=== PATIENT | female | born 1990 | race Caucasian/White ===

== ENCOUNTER 2018-11-10 06:41 | Emergency (ER) | payer MEDICAID, OTHER ==
--- NOTE | 2018-11-10 07:13 | XRay Report ---
PROCEDURE: XR CHEST 1V AP TECHNIQUE: A single view of the chest was submitted. HISTORY: Chest Pain COMPARISONS: None FINDINGS: The lungs are clear. Pleural fluid is not seen. The heart size is normal. The skeletal structures are well-maintained. IMPRESSION: No acute cardiopulmonary process.. This document is electronically signed by Calin Sheffield MD., November 10 2018 07:11:17 AM ET
--- NOTE | 2018-11-10 08:32 | Emergency Department Report ---
Minor Respiratory - HPI Chief Complaint: Upper Respiratory Infection Stated Complaint: COUGHING BLOOD/CHERI/SCRATCHY THROAT/NOSE BLEED Time Seen by Provider: 11/10/18 08:13 Duration: 3 Days Pain Location: Chest Severity: moderate Minor Respiratory: Yes Rhinorrhea, Yes Able to Tolerate Fluids, Yes Cough (occasionally the patient is noticed some bloody sputum), Yes Sick Contacts (patient's daughter has been ill approximately one month ago), No Sore Throat, No Ear Pain, No Hemoptysis, No Chest Pain, No Shortness of Breath, No Fever Other History: Besides the patient's cough patient also has had off and on nosebleeds. She states she has some pain in her chest when coughing. She is mild body aches and nasal congestion. ED Review of Systems ROS: Stated complaint: COUGHING BLOOD/CHERI/SCRATCHY THROAT/NOSE BLEED Other details as noted in HPI Comment: All other systems reviewed and negative ED Past Medical Hx - Past Medical History Previous Medical History?: No - Surgical History Past Surgical History?: No - Social History Smoking Status: Never Smoker Substance Use Type: None - Medications Home Medications: Home Medications Medication Instructions Recorded Confirmed Last Taken Type ALBUTEROL Inhaler (OR & NICU) 2 puff IH QID PRN #1 inhalation 11/10/18 Unknown Rx [ProAir HFA Inhaler] Fluticasone [Flonase] 1 spray NS QDAY #1 bottle 11/10/18 Unknown Rx HYDROcodone/APAP 5-325 [[place] 1 each PO Q4HR PRN #12 tablet 11/10/18 Unknown Rx 5/325] predniSONE [Deltasone] 20 mg PO QDAY #5 tab 11/10/18 Unknown Rx Minor Respiratory Exam - Exam General: Vital signs noted. No distress. Alert and acting appropriately. HEENT: Yes Moist Mucous Membranes, No Pharyngeal Erythema, No Pharyngeal Exudates, No Rhinorrhea, No Conjuctival Injection, No Frontal Tenderness, No Maxillary Tenderness Ear: Neither TM Bulge, Neither TM Erythema, Neither EAC Pain, Neither EAC Discharge Neck: Yes Supple, No Adenopathy Lungs: Yes Good Air Exchange, Yes Cough, No Wheezes, No Ronchi, No Stridor, No Labored Respirations, No Retractions, No Use of Accessory Muscles, No Other Abnormal Lung Sounds Heart: Yes Regular, No Murmur Abdomen: Yes Normal Bowel Sounds, No Tenderness, No Peritoneal Signs Skin: No Rash, No Edema Neurologic: Alert and oriented, no deficits. Musculoskeletal: Unremarkable. ED Medical Decision Making - Radiology Data Chest x-ray is within normal limits - Medical Decision Making Patient be treated for acute bronchitis. Patient discharged home. Critical care attestation.: If time is entered above; I have spent that time in minutes in the direct care of this critically ill patient, excluding procedure time. ED Disposition Clinical Impression: Acute bronchitis Qualifiers: Bronchitis organism: unspecified organism Qualified Code(s): J20.9 - Acute bronchitis, unspecified Disposition: DC-01 TO HOME OR SELFCARE Is pt being admited?: No Does the pt Need Aspirin: No Condition: Stable Instructions: Acute Bronchitis (ED) Referrals: LENNY DIALLO MD [Primary Care Provider] - 3-5 Days Time of Disposition: 08:31
[2018-11-10 08:47] VITALS: BP 126/74
== END 2018-11-10 08:46 | disposition home or self-care (01) ==
LOC: ED 06:41
DX: J20.9 Acute bronchitis, unspecified (principal)
CPT/HCPCS: 71045; 93005; 93010

== ENCOUNTER 2018-12-15 23:03 | Emergency (ER) | payer OTHER ==
--- NOTE | 2018-12-15 23:10 | Emergency Department Report ---
Stated Complaint: CHEST PAIN, BLOODY SPUTUM Time Seen by Provider: 12/15/18 23:09 - HPI History of Present Illness: r sided cp coming and going poor informant vss nad MSE screening note: Focused history and physical exam performed. Due to findings the following was ordered: ED Disposition for MSE Condition: Stable
[2018-12-16 00:31] VITALS: BP 104/70
--- NOTE | 2018-12-16 01:23 | Emergency Department Report ---
ED General Adult HPI - General Chief complaint: Chest Pain Stated complaint: CHEST PAIN, BLOODY SPUTUM Time Seen by Provider: 12/15/18 23:09 Source: patient Mode of arrival: Ambulatory Limitations: No Limitations - History of Present Illness Initial comments: 28 0 -[place] female presents to the emergency room for intermittent right chest pain for 2 days. Patient reports that it feels like it's burning. Patient also reports over productive cough and nasal congestion. Patient had a past medical history of bronchitis back in October. She reports she uses her Flonase intermittently as well as several albuterol inhaler. Recent currently denies any chest pain. -: days(s) (2) Location: chest Severity scale (0 -10): 5 Quality: burning Consistency: intermittent Improves with: none Worsens with: none Associated Symptoms: cough Treatments Prior to Arrival: none - Related Data Previous Rx's Medication Instructions Recorded Last Taken Type ALBUTEROL Inhaler (OR & NICU) 2 puff IH QID PRN #1 inhalation 11/10/18 Unknown Rx [ProAir HFA Inhaler] Fluticasone [Flonase] 1 spray NS QDAY #1 bottle 11/10/18 Unknown Rx HYDROcodone/APAP 5-325 [[place] 1 each PO Q4HR PRN #12 tablet 11/10/18 Unknown Rx 5/325] predniSONE [Deltasone] 20 mg PO QDAY #5 tab 11/10/18 Unknown Rx Allergies Allergy/AdvReac Type Severity Reaction Status Date / Time No Known Allergies Allergy Verified 11/10/18 06:48 ED Review of Systems ROS: Stated complaint: CHEST PAIN, BLOODY SPUTUM Other details as noted in HPI Comment: All other systems reviewed and negative ED Past Medical Hx - Past Medical History Previous Medical History?: No - Surgical History Past Surgical History?: No - Social History Smoking Status: Never Smoker - Medications Home Medications: Home Medications Medication Instructions Recorded Confirmed Last Taken Type ALBUTEROL Inhaler (OR & NICU) 2 puff IH QID PRN #1 inhalation 11/10/18 Unknown Rx [ProAir HFA Inhaler] Fluticasone [Flonase] 1 spray NS QDAY #1 bottle 11/10/18 Unknown Rx HYDROcodone/APAP 5-325 [[place] 1 each PO Q4HR PRN #12 tablet 11/10/18 Unknown Rx 5/325] predniSONE [Deltasone] 20 mg PO QDAY #5 tab 11/10/18 Unknown Rx ED Physical Exam - General Limitations: No Limitations General appearance: alert, in no apparent distress - Head Head exam: Present: atraumatic, normocephalic - Eye Eye exam: Present: normal appearance - ENT ENT exam: Present: mucous membranes moist - Neck Neck exam: Present: normal inspection - Respiratory Respiratory exam: Present: normal lung sounds bilaterally. Absent: respiratory distress, chest wall tenderness, decreased breath sounds - Cardiovascular Cardiovascular Exam: Present: regular rate, normal rhythm. Absent: systolic murmur, diastolic murmur, rubs, gallop - GI/Abdominal GI/Abdominal exam: Present: soft, normal bowel sounds - Extremities Exam Extremities exam: Present: normal inspection - Back Exam Back exam: Present: normal inspection - Neurological Exam Neurological exam: Present: alert, oriented X3 - Psychiatric Psychiatric exam: Present: normal affect, normal mood - Skin Skin exam: Present: warm, dry, intact, normal color. Absent: rash ED Course Vital Signs 12/15/18 23:48 Temperature 97.6 F Pulse Rate 70 Respiratory 16 Rate Blood Pressure 104/70 O2 Sat by Pulse 100 Oximetry ED Medical Decision Making - Medical Decision Making Patient has been evaluated by this provider and [facility]. Patient currently has no chest pain and is not coughing. Patient needs to follow up with a primary care provider I will refer patient to [facility]. Critical care attestation.: If time is entered above; I have spent that time in minutes in the direct care of this critically ill patient, excluding procedure time. ED Disposition Clinical Impression: Chest pain, atypical Disposition: DC-01 TO HOME OR SELFCARE Is pt being admited?: No Does the pt Need Aspirin: No Condition: Stable Instructions: Chest Pain (ED) Additional Instructions: Please follow up with a primary care provider I have listed one below for your convenience. [facility] - 3-5 Days Forms: Work/School Release Form(ED)
== END 2018-12-16 01:25 | disposition home or self-care (01) ==
LOC: ED 23:03
DX: R07.89 Other chest pain (principal)
CPT/HCPCS: 99282

== ENCOUNTER 2019-07-07 19:59 | Emergency (ER) | payer SELFPAY ==
--- NOTE | 2019-07-07 20:16 | Emergency Department Report ---
Blank Doc - Documentation Documentation: 28-year-old female that presents with abdominal pain and midsternum chest pain. Denies any n/v. Denies any SOB. This initial assessment/diagnostic orders/clinical plan/treatment(s) is/are subject to change based on patient's health status, clinical progression and re-assessment by fellow clinical providers in the ED. Further treatment and workup at subsequent clinical providers discretion. Patient/guardians urged not to elope from the ED as their condition may be serious if not clinically assessed and managed. Initial orders include: 1- Patient sent to [facility] for further evaluation and treatment 2-EKG 3 xrays 4- labs
[2019-07-07 21:04] LABS: Amorphous Crystals,Urine 1+; Bilirubin,Urine NEG (Negative); Blood,Urine NEG (Negative); Color,Urine Yellow (Yellow); RBC,Urine < 1.0 /HPF (0.0-6.0); Urobilinogen,Urine < 2.0 mg/dL (<2.0)
[2019-07-07] MEDS ORDERED: ALUM-MAG HYDROXIDE-SIMETHICONE 200-200-20MG/5ML ORAL LIQD 30 ML PO ONE (21:43)
[2019-07-07] MEDS ORDERED: ASPIRIN 325 MG TAB PO ONE (21:43)
[2019-07-07] MEDS ORDERED: FAMOTIDINE 20 MG TAB PO ONE (21:43)
[2019-07-07] MEDS ORDERED: LIDOCAINE VISCOUS 2% 15 ML ORAL LIQD PO ONE (21:43)
[2019-07-07 22:21] LABS: Basophils # (Auto) 0.1 K/mm3 (0.0-0.1); Basophils % (Auto) 0.9 % (0.0-1.8); Eosinophils # (Auto) 0.3 K/mm3 (0.0-0.4); Eosinophils % (Auto) 3.9 % (0.0-4.3); Hematocrit 38.6 % (30.3-42.9); Hemoglobin 12.3 gm/dl (10.1-14.3); Lymphocytes # (Auto) 2.4 K/mm3 (1.2-5.4); Lymphocytes % (Auto) 33.2 % (13.4-35.0); Mean Corpuscular HGB Conc 32 % (30-34); Mean Corpuscular Volume 87 fl (79-97); Monocytes # (Auto) 0.6 K/mm3 (0.0-0.8); Monocytes % (Auto) 8.5 % (0.0-7.3); Platelet Count 403 K/mm3 (140-440); Red Blood Count 4.46 M/mm3 (3.65-5.03); Red Cell Distribution Width 14.1 % (13.2-15.2)
[2019-07-07 22:31] LABS: INR 1.04 (0.87-1.13)
[2019-07-07 22:32] LABS: Partial Thromboplastin Time 25.4 Sec. (24.2-36.6)
[2019-07-07 22:46] LABS: Alanine Aminotransferase 15 units/L (7-56); Albumin 4.1 g/dL (3.9-5); BUN/Creatinine Ratio 14; Blood Urea Nitrogen 10 mg/dL (7-17); Calcium 9.2 mg/dL (8.4-10.2); Hemolysis Index 22
--- NOTE | 2019-07-07 23:06 | XRay Report ---
CLINICAL DATA: cp/abd pain TECHNICAL DATA: PA chest, AP supine abdomen, upright or left lateral decubitus abdomen. FINDINGS: The cardiac silhouette and pulmonary vasculature are normal. The lungs are clear and well expanded. T here is no evidence of focal consolidation, pneumothorax, or pleural effusion. Bowel gas pattern is nonobstructive. There is no free intraperitoneal air. There are no abnormal calc ifications. IMPRESSION: No acute radiographic abnormality of the chest and abdomen. Signer Name: Mitchle Sanchez MD Signed: 07/07/2019 11:01 PM Workstation Name: [id number]
--- NOTE | 2019-07-08 01:58 | Emergency Department Report ---
ED Chest Pain HPI - General Chief Complaint: Chest Pain Stated Complaint: CHEST PAIN Time Seen by Provider: 07/07/19 20:15 Source: patient Mode of arrival: Ambulatory Limitations: No Limitations - History of Present Illness Initial Comments: Patient is a 28-year-old -[place] female with no past medical history who presents to the ED with acute onset persistent epigastric pain that it is a substernal chest wall for the last 4 days. Patient states that the pain has been persistent and is characterized by a sharp running sensation intermittent ly, which gets worse with food or when laying supine. Patient denies fever, chills, nausea, vomiting, diarrhea, dysuria, urinary frequency and urgency, shortness of breath, cough, change in vision, syncope or sore throat and neck pain. MD Complaint: chest pain, other (epigastric pain) -: Sudden, days(s) (4) Onset: during rest, after eating, awoke with symptoms Pain Location: substernal, epigastric Pain Radiation: none Severity: moderate Severity scale (0 -10): 5 Quality: aching, sharp Consistency: constant Improves With: nothing Worsens With: eating, supine Context: other (spontaneous) re: denies: nausea, vomting, diaphoresis, dyspnea, sense of impending doom Other Symptoms: cough, acid taste in mouth, burping. denies: fever, syncope, palpitations, other Treatments Prior to Arrival: none Aspirin use within the Past 7 Days: (0) No - Related Data On Oral Contraceptives: No Previous Rx's Medication Instructions Recorded Last Taken Type ALBUTEROL Inhaler (OR & NICU) 2 puff IH QID PRN #1 inhalation 11/10/18 Unknown Rx [ProAir HFA Inhaler] Fluticasone [Flonase] 1 spray NS QDAY #1 bottle 11/10/18 Unknown Rx HYDROcodone/APAP 5-325 [[place] 1 each PO Q4HR PRN #12 tablet 11/10/18 Unknown Rx 5/325] predniSONE [Deltasone] 20 mg PO QDAY #5 tab 11/10/18 Unknown Rx Famotidine [Pepcid] 20 mg PO Q12H #60 tablet 07/08/19 Unknown Rx Naproxen 500 mg PO Q12H PRN #20 tablet 07/08/19 Unknown Rx Omeprazole 40 mg PO DAILY #30 capsule. 07/08/19 Unknown Rx Ondansetron [Zofran Odt] 4 mg PO Q6HR PRN #15 tab.kalli 07/08/19 Unknown Rx Allergies Allergy/AdvReac Type Severity Reaction Status Date / Time No Known Allergies Allergy Verified 11/10/18 06:48 Heart Score - HEART Score History: Slightly suspicious EKG: Normal Age: < 45 Risk factors: No known risk factors Troponin: < normal limit HEART Score: 0 - Critical Actions Critical Actions: 0-3 pts:0.9-1.7%risk of adverse cardiac event.Candidate for discharge ED Review of Systems ROS: Stated complaint: CHEST PAIN Other details as noted in HPI Constitutional: denies: chills, fever Eyes: denies: eye pain, eye discharge, vision change ENT: denies: ear pain, throat pain Respiratory: denies: cough, shortness of breath, wheezing Cardiovascular: chest pain (substernal). denies: palpitations Endocrine: no symptoms reported Gastrointestinal: abdominal pain (epigastric). denies: nausea, vomiting, diarrhea Genitourinary: denies: urgency, dysuria, discharge Musculoskeletal: denies: back pain, joint swelling, arthralgia Skin: denies: rash, lesions Neurological: denies: headache, weakness, paresthesias Psychiatric: denies: anxiety, depression Hematological/Lymphatic: denies: easy bleeding, easy bruising ED Past Medical Hx - Past Medical History Previous Medical History?: No - Surgical History Past Surgical History?: No - Social History Smoking Status: Never Smoker Substance Use Type: None - Medications Home Medications: Home Medications Medication Instructions Recorded Confirmed Last Taken Type ALBUTEROL Inhaler (OR & NICU) 2 puff IH QID PRN #1 inhalation 11/10/18 Unknown Rx [ProAir HFA Inhaler] Fluticasone [Flonase] 1 spray NS QDAY #1 bottle 11/10/18 Unknown Rx HYDROcodone/APAP 5-325 [[place] 1 each PO Q4HR PRN #12 tablet 11/10/18 Unknown Rx 5/325] predniSONE [Deltasone] 20 mg PO QDAY #5 tab 11/10/18 Unknown Rx Famotidine [Pepcid] 20 mg PO Q12H #60 tablet 07/08/19 Unknown Rx Naproxen 500 mg PO Q12H PRN #20 tablet 07/08/19 Unknown Rx Omeprazole 40 mg PO DAILY #30 capsule. 07/08/19 Unknown Rx Ondansetron [Zofran Odt] 4 mg PO Q6HR PRN #15 tab.kalli 07/08/19 Unknown Rx ED Physical Exam - General Limitations: No Limitations General appearance: alert, in no apparent distress - Head Head exam: Present: atraumatic, normocephalic, normal inspection - Eye Eye exam: Present: normal appearance, PERRL, EOMI Pupils: Present: normal accommodation - ENT ENT exam: Present: normal exam, normal orophraynx, mucous membranes moist, TM's normal bilaterally, normal external ear exam - Neck Neck exam: Present: normal inspection, full ROM - Respiratory Respiratory exam: Present: normal lung sounds bilaterally. Absent: respiratory distress, wheezes, rales, rhonchi, chest wall tenderness, accessory muscle use, decreased breath sounds - Cardiovascular Cardiovascular Exam: Present: regular rate, normal rhythm, normal heart sounds. Absent: systolic murmur, diastolic murmur, rubs, gallop - GI/Abdominal GI/Abdominal exam: Present: soft, tenderness (epigastric ), normal bowel sounds. Absent: guarding, rebound, hyperactive bowel sounds, hypoactive bowel sounds, organomegaly - Extremities Exam Extremities exam: Present: normal inspection, full ROM, normal capillary refill - Back Exam Back exam: Present: normal inspection, full ROM. Absent: tenderness, CVA tenderness (R), CVA tenderness (L), muscle spasm, paraspinal tenderness, vertebral tenderness - Neurological Exam Neurological exam: Present: alert, oriented X3, CN II-XII intact, normal gait, reflexes normal - Psychiatric Psychiatric exam: Present: normal affect, normal mood - Skin Skin exam: Present: warm, dry, intact, normal color. Absent: rash ED Course Vital Signs 07/07/19 07/07/19 20:03 20:15 Temperature 98.5 F 98.5 F Pulse Rate 71 70 Respiratory 14 18 Rate Blood Pressure 105/70 105/70 O2 Sat by Pulse 99 99 Oximetry JUAN score - Juan Score Age > 65: (0) No Aspirin use within the Past 7 Days: (0) No 3 or more CAD Risk Factors: (0) No 2 or more Angina events in past 24 hrs: (0) No Known CAD with more than 50% Stenosis: (0) No Elevated Cardiac Markers: (0) No ST Deviation Greater than 0.5mm: (0) No JUAN Score: 0 ED Medical Decision Making - Lab Data Result diagrams: 07/07/19 20:29 07/07/19 20:29 - Radiology Data Radiology results: report reviewed, image reviewed Findings [facility] [address] [place] [address] Cat Scan Report Signed Patient: CIARAN MORALEZ MR#: [id number] : 1990 Acct:[id number] Age/Sex: 28 / F ADM Date: 07/07/19 Loc: ED Attending Dr: Ordering Physician: CHILO FISHMAN Date of Service: 07/07/19 Procedure(s): CT angio chest Accession Number(s): [id number] cc: CHILO FISHMAN CTA CHEST WITH IV CONTRAST INDICATION / CLINICAL INFORMATION: Chest pain: Elevated D-dimer, PE r/o. TECHNIQUE: Axial CT images were obtained through the chest after injection of 100 mL IV contrast. 3 plane MIP and/or 3D reconstructions were produced. All CT scans at this location are performed using CT dose reduction for ALARA by means of automated exposure control. COMPARISON: None available. FINDINGS: PULMONARY ARTERIES: No pulmonary emboli. THORACIC AORTA: No significant abnormality. HEART: No significant abnormality. CORONARY ARTERIES: No significant calcification. PLEURA: No pleural effusion. No pneumothorax. LYMPH NODES: No significant adenopathy. LUNGS: No acute air space or interstitial disease. Both lungs are clear. ADDITIONAL FINDINGS: None. UPPER ABDOMEN: No acute findings. SKELETAL STRUCTURES: No significant osseous abnormality. IMPRESSION: 1. No CT evidence for pulmonary embolism. 2. No acute findings. Signer Name: Tiffany Camarillo MD Signed: 07/08/2019 2:44 AM Workstation Name: [id number] Transcribed By: Dictated By: Tiffany Camarillo MD Electronically Authenticated By: Tiffany Camarillo MD Signed Date/Time: 07/08/19243 DD/ 1 TD/TT: ----- Findings [facility] [address] [place] [address] XRay Report Signed Patient: CIARAN MORALEZ MR#: [id number] : 1990 Acct:[id number] Age/Sex: 28 / F ADM Date: 07/07/19 Loc: ED Attending Dr: Ordering Physician: SHADE KIRK NP Date of Service: 07/07/19 Procedure(s): XR abd series w cxr 1V Accession Number(s): [id number] cc: SHADE KIRK NP Fluoro Time In Minutes: CLINICAL DATA: cp/abd pain TECHNICAL DATA: PA chest, AP supine abdomen, upright or left lateral decubitus abdomen. FINDINGS: The cardiac silhouette and pulmonary vasculature are normal. The lungs are clear and well expanded. There is no evidence of focal consolidation, pneumothorax, or pleural effusion. Bowel gas pattern is nonobstructive. There is no free intraperitoneal air. There are no abnormal calcifications. IMPRESSION: No acute radiographic abnormality of the chest and abdomen. Signer Name: Mitchel Sanchez MD Signed: 07/07/2019 11:01 PM Workstation Name: [id number] Transcribed By: WG Dictated By: Mitchel Sanchez MD Electronically Authenticated By: Mitchel Sanchez MD Signed Date/Time: 07/07/192300 DD/ 00 TD/TT: - Medical Decision Making This is a 28-year-old female who presented to the ED with epigastric pain that hideous with a substernal chest area for 4 days. In the ED, patient is alert and oriented 3 in destruction and distress. Lab test results were reviewed and are all nonactionable including troponin levels but the d-dimer is elevated to 258.58. Chest x-ray shows no acute cardiopulmonary abnormalities or pneumonitis. Patient was treated for pain with GI cocktail and Pepcid and on reevaluation, patient's pain is resolved. CTA chest was ordered to rule out PE. The chest CTA shows no acute process including PE. Patient was discharged home on pain medications and antacids as well as antiemetics, and was advised to follow-up with [facility] for further evaluation. Patient was advised to return to the ED immediately if symptoms get worse. - Differential Diagnosis ACS; Pneumonia; GERD; PE; Costochondritis Critical care attestation.: If time is entered above; I have spent that time in minutes in the direct care of this critically ill patient, excluding procedure time. ED Disposition Clinical Impression: Atypical chest pain, Acute epigastric pain, Acute costochondritis GERD (gastroesophageal reflux disease) Qualifiers: Esophagitis presence: without esophagitis Qualified Code(s): K21.9 - Gastro- esophageal reflux disease without esophagitis Disposition: TO HOME OR SELFCARE Is pt being admited?: No Does the pt Need Aspirin: No Condition: Stable Instructions: Chest Pain (ED), Gastroesophageal Reflux Disease (ED), Acute Abdominal Pain (ED) Additional Instructions: Take medications with food, drink plenty fluids and follow-up with your primary care physician in 7-10 days for reevaluation. Prescriptions: Naproxen 500 mg PO Q12H PRN #20 tablet PRN Reason: Pain , Severe (7-10) Omeprazole 40 mg PO DAILY #30 capsule. Famotidine [Pepcid] 20 mg PO Q12H #60 tablet Ondansetron [Zofran Odt] 4 mg PO Q6HR PRN #15 tab.rapdis PRN Reason: Nausea Referrals: PRIMARY CARE, [Primary Care Provider] - 3-5 Days Time of Disposition: 03:00 Print Language: LAO
--- NOTE | 2019-07-08 02:49 | Cat Scan Report ---
CTA CHEST WITH IV CONTRAST INDICATION / CLINICAL INFORMATION: Chest pain: Elevated D-dimer, PE r/o. TECHNIQUE: Axial CT images were obtained through the chest after injection of 100 mL IV contrast. 3 plane MIP an d/or 3D reconstructions were produced. All CT scans at this location are performed using CT dose redu ction for [facility] by means of automated exposure control. COMPARISON: None available. FINDINGS: PULMONARY ARTERIES: No pulmonary emboli. THORACIC AORTA: No significant abnormality. HEART: No significant abnormality. CORONARY ARTERIES: No significant calcification. PLEURA: No pleural effusion. No pneumothorax. LYMPH NODES: No significant adenopathy. LUNGS: No acute air space or interstitial disease. Both lungs are clear. ADDITIONAL FINDINGS: None. UPPER ABDOMEN: No acute findings. SKELETAL STRUCTURES: No significant osseous abnormality. IMPRESSION: 1. No CT evidence for pulmonary embolism. 2. No acute findings. Signer Name: Tiffany Camarillo MD Signed: 07/08/2019 2:44 AM Workstation Name: [id number]
[2019-07-08 03:19] VITALS: BP 115/82
== END 2019-07-08 03:19 | disposition home or self-care (01) ==
LOC: ED 19:59
DX: K21.9 Gastro-esophageal reflux disease without esophagitis (principal); M94.0 Chondrocostal junction syndrome [Tietze]
CPT/HCPCS: 36415; 71275; 74022; 80053; 81001; 83690; 84484; 84703; 85025; 85379; 85610; 85730; 93005; 93010; 99284; Q9967

== ENCOUNTER 2019-08-02 22:35 | Emergency (ER) | payer SELFPAY ==
--- NOTE | 2019-08-02 23:30 | XRay Report ---
CHEST 1 VIEW 08/02/2019 11:09 PM INDICATION / CLINICAL INFORMATION: Chest Pain. COMPARISON: One view of the chest from 11/10/2018. FINDINGS: SUPPORT DEVICES: None. HEART / MEDIASTINUM: No significant abnormality. LUNGS / PLEURA: No significant pulmonary or pleural abnormality. No pneumothorax. ADDITIONAL FINDINGS: No significant additional findings. IMPRESSION: 1. No acute abnormality of the chest. Signer Name: Ruben Velásquez MD Signed: 08/02/2019 11:26 PM Workstation Name: [id number]
[2019-08-03] MEDS ORDERED: FAMOTIDINE 20 MG/2 ML INJ IV ONE (00:45)
[2019-08-03] MEDS ORDERED: ONDANSETRON 4 MG/2 ML INJ IV ONE (00:45)
[2019-08-03] MEDS ORDERED: SODIUM CHLORIDE 0.9% 1000 ML 1,000 ML IV ONE (00:48)
[2019-08-03 01:22] LABS: Basophils % (Auto) 0.6 % (0.0-1.8); Eosinophils # (Auto) 0.5 K/mm3 (0.0-0.4); Eosinophils % (Auto) 5.7 % (0.0-4.3); Hematocrit 38.4 % (30.3-42.9); Hemoglobin 12.4 gm/dl (10.1-14.3); Lymphocytes # (Auto) 1.7 K/mm3 (1.2-5.4); Lymphocytes % (Auto) 20.4 % (13.4-35.0); Mean Corpuscular HGB Conc 32 % (30-34); Mean Corpuscular Volume 87 fl (79-97); Monocytes # (Auto) 0.6 K/mm3 (0.0-0.8); Monocytes % (Auto) 7.4 % (0.0-7.3); Platelet Count 396 K/mm3 (140-440); Red Blood Count 4.42 M/mm3 (3.65-5.03); Red Cell Distribution Width 13.8 % (13.2-15.2)
[2019-08-03 01:48] LABS: Alanine Aminotransferase 13 units/L (7-56); Albumin 4.2 g/dL (3.9-5); BUN/Creatinine Ratio 17; Blood Urea Nitrogen 10 mg/dL (7-17); Calcium 9.1 mg/dL (8.4-10.2); Hemolysis Index 3
--- NOTE | 2019-08-03 02:36 | Cat Scan Report ---
CT ABDOMEN AND PELVIS WITH CONTRAST INDICATION: Mid abdominal pain with nausea. COMPARISON: Acute abdominal series from 07/07/2019. TECHNIQUE: Axial, coronal and sagittal CT imaging of the abdomen and pelvis was performed after inje ction of 100 cc Omnipaque [address] scans at this location are performed using CT dose re duction for ALARA by means of automated exposure control. FINDINGS: LOWER CHEST: No significant abnormality. LIVER: No significant abnormality. BILIARY: No significant abnormality. PANCREAS: No significant abnormality. SPLEEN: No significant abnormality. ADRENALS: No significant abnormality. KIDNEYS AND URETERS: No significant abnormality. GI TRACT: No significant abnormality of the stomach, small bowel or colon. Unremarkable appendix. PERITONEUM: No free fluid. No free air. No fluid collection. LYMPH NODES: No significant adenopathy. VASCULATURE: No significant abnormality. URINARY BLADDER: No significant abnormality. REPRODUCTIVE ORGANS: No significant abnormality. ADDITIONAL FINDINGS: None. SKELETAL SYSTEM: No significant abnormality. IMPRESSION: No acute abnormality of the abdomen or pelvis. Signer Name: Ruben Velásquez MD Signed: 08/03/2019 2:31 AM Workstation Name: [id number]
[2019-08-03] MEDS ORDERED: dexAMETHasone 20 MG/5 ML VIAL IV ONE (02:42)
--- NOTE | 2019-08-03 03:35 | Emergency Department Report ---
ED General Adult HPI - General Chief complaint: GI Bleed Stated complaint: CHEST PAIN, MARTE, NAUSEA Source: patient Mode of arrival: Ambulatory Limitations: No Limitations - History of Present Illness Initial comments: Patient is a 29-year-old -Finnish female with no past medical history who presented to the ED with complaint of acute onset persistent headache, dry cough with pleuritic chest pain and periumbilical abdominal pain for the last 3 days. Patient also complains of nausea and vomiting with specks of blood subjectively with sore throat. Patient denies fever, chills, dizziness, shortness of breath, diarrhea, dysuria, urinary frequency and urgency, vaginal bleeding, hematochezia or hematemesis, syncope or palpitations. MD Complaint: ABDOMINAL PAIN; CHEST PAIN, HEADACHE, Nasal and sinus congestion -: Sudden, days(s) (3) Location: mouth, chest, abdomen Radiation: non-radiation Severity scale (0 -10): 4 Quality: aching, sharp Consistency: intermittent Improves with: none Worsens with: none Associated Symptoms: denies other symptoms, chest pain, cough, headaches, loss of appetite, malaise, nausea/vomiting. denies: confusion, diaphoresis, fever/chills, rash, seizure, shortness of breath, syncope, other Treatments Prior to Arrival: none - Related Data Previous Rx's Medication Instructions Recorded Last Taken Type ALBUTEROL Inhaler (OR & NICU) 2 puff IH QID PRN #1 inhalation 11/10/18 Unknown Rx [ProAir HFA Inhaler] Fluticasone [Flonase] 1 spray NS QDAY #1 bottle 11/10/18 Unknown Rx HYDROcodone/APAP 5-325 [[place] 1 each PO Q4HR PRN #12 tablet 11/10/18 Unknown Rx 5/325] predniSONE [Deltasone] 20 mg PO QDAY #5 tab 11/10/18 Unknown Rx Naproxen 500 mg PO Q12H PRN #20 tablet 07/08/19 Unknown Rx Omeprazole 40 mg PO DAILY #30 capsule. 07/08/19 Unknown Rx Azithromycin [Zithromax Z-GUNNAR] 250 mg PO DAILY #6 tablet 08/03/19 Unknown Rx Benzonatate [Tessalon Perles] 100 mg PO Q8HR #30 capsule 08/03/19 Unknown Rx Famotidine [Pepcid] 20 mg PO Q12H #60 tablet 08/03/19 Unknown Rx Ondansetron [Zofran ODT TAB] 4 mg PO Q6HR PRN #20 tab.rapdis 08/03/19 Unknown Rx methylPREDNISolone [Medrol 4MG 4 mg PO DAILY #21 tab.ds.pk 08/03/19 Unknown Rx DOSEPAK (21 tabs)] Allergies Allergy/AdvReac Type Severity Reaction Status Date / Time No Known Allergies Allergy Verified 11/10/18 06:48 ED Review of Systems ROS: Stated complaint: CHEST PAIN, MARTE, NAUSEA Other details as noted in HPI Constitutional: denies: chills, fever Eyes: denies: eye pain, eye discharge, vision change ENT: throat pain. denies: ear pain Respiratory: denies: cough, shortness of breath, wheezing Cardiovascular: chest pain (pleuritic). denies: palpitations Endocrine: no symptoms reported Gastrointestinal: hematemesis. denies: abdominal pain, nausea, vomiting, diarrhea Genitourinary: denies: urgency, dysuria, discharge Musculoskeletal: denies: back pain, joint swelling, arthralgia Skin: denies: rash, lesions Neurological: headache. denies: weakness, paresthesias Psychiatric: denies: anxiety, depression Hematological/Lymphatic: denies: easy bleeding, easy bruising ED Past Medical Hx - Past Medical History Previous Medical History?: No - Surgical History Past Surgical History?: No - Social History Smoking Status: Never Smoker Substance Use Type: None - Medications Home Medications: Home Medications Medication Instructions Recorded Confirmed Last Taken Type ALBUTEROL Inhaler (OR & NICU) 2 puff IH QID PRN #1 inhalation 11/10/18 Unknown Rx [ProAir HFA Inhaler] Fluticasone [Flonase] 1 spray NS QDAY #1 bottle 11/10/18 Unknown Rx HYDROcodone/APAP 5-325 [[place] 1 each PO Q4HR PRN #12 tablet 11/10/18 Unknown Rx 5/325] predniSONE [Deltasone] 20 mg PO QDAY #5 tab 11/10/18 Unknown Rx Naproxen 500 mg PO Q12H PRN #20 tablet 07/08/19 Unknown Rx Omeprazole 40 mg PO DAILY #30 capsule. 07/08/19 Unknown Rx Azithromycin [Zithromax Z-GUNNAR] 250 mg PO DAILY #6 tablet 08/03/19 Unknown Rx Benzonatate [Tessalon Perles] 100 mg PO Q8HR #30 capsule 08/03/19 Unknown Rx Famotidine [Pepcid] 20 mg PO Q12H #60 tablet 08/03/19 Unknown Rx Ondansetron [Zofran ODT TAB] 4 mg PO Q6HR PRN #20 tab.rapdis 08/03/19 Unknown Rx methylPREDNISolone [Medrol 4MG 4 mg PO DAILY #21 tab.ds.pk 08/03/19 Unknown Rx DOSEPAK (21 tabs)] ED Physical Exam - General Limitations: No Limitations General appearance: alert, in no apparent distress - Head Head exam: Present: atraumatic, normocephalic, normal inspection - Eye Eye exam: Present: normal appearance, PERRL, EOMI Pupils: Present: normal accommodation - ENT ENT exam: Present: normal exam, normal orophraynx, mucous membranes moist, TM's normal bilaterally, normal external ear exam - Neck Neck exam: Present: normal inspection, full ROM. Absent: tenderness, lymphadenopathy - Respiratory Respiratory exam: Present: normal lung sounds bilaterally. Absent: respiratory distress, wheezes, rales, chest wall tenderness, decreased breath sounds, prolonged expiratory - Cardiovascular Cardiovascular Exam: Present: regular rate, normal rhythm, normal heart sounds. Absent: systolic murmur, diastolic murmur, rubs, gallop - GI/Abdominal GI/Abdominal exam: Present: soft, tenderness (mildly tender in periumbilical area), normal bowel sounds. Absent: guarding, hyperactive bowel sounds, hypoactive bowel sounds, organomegaly - Extremities Exam Extremities exam: Present: normal inspection, full ROM, normal capillary refill - Back Exam Back exam: Present: normal inspection, full ROM. Absent: CVA tenderness (L), muscle spasm, paraspinal tenderness - Neurological Exam Neurological exam: Present: alert, oriented X3, CN II-XII intact, normal gait, reflexes normal - Psychiatric Psychiatric exam: Present: normal affect, normal mood - Skin Skin exam: Present: warm, dry, intact, normal color. Absent: rash ED Course Vital Signs 08/02/19 22:47 Temperature 98.2 F Pulse Rate 18 L Respiratory 18 Rate Blood Pressure 115/69 O2 Sat by Pulse 100 Oximetry ED Medical Decision Making - Lab Data Result diagrams: 08/03/19 00:58 08/03/19 00:58 - EKG Data EKG shows normal: sinus rhythm Rate: normal - EKG Data Interpretation: normal EKG 08/03/19 03:40 EKG shows normal sinus rhythm with ventricular rate of 73 beats per minute and no ST or T-wave abnormalities. - Radiology Data Radiology results: report reviewed, image reviewed Findings [facility] [address] [place] [address] Cat Scan Report Signed Patient: CIARAN MORALEZ MR#: [id number] : 1990 Acct:[id number] Age/Sex: 29 / F ADM Date: 08/02/19 Loc: ED Attending Dr: Ordering Physician: CHILO FISHMAN Date of Service: 08/03/19 Procedure(s): CT abdomen pelvis w con Accession Number(s): [id number] cc: CHILO FISHMAN CT ABDOMEN AND PELVIS WITH CONTRAST INDICATION: Mid abdominal pain with nausea. COMPARISON: Acute abdominal series from 07/07/2019. TECHNIQUE: Axial, coronal and sagittal CT imaging of the abdomen and pelvis was performed after injection of 100 cc Omnipaque [address] scans at this location are performed using CT dose reduction for ALARA by means of automated exposure control. FINDINGS: LOWER CHEST: No significant abnormality. LIVER: No significant abnormality. BILIARY: No significant abnormality. PANCREAS: No significant abnormality. SPLEEN: No significant abnormality. ADRENALS: No significant abnormality. KIDNEYS AND URETERS: No significant abnormality. GI TRACT: No significant abnormality of the stomach, small bowel or colon. Unremarkable appendix. PERITONEUM: No free fluid. No free air. No fluid collection. LYMPH NODES: No significant adenopathy. VASCULATURE: No significant abnormality. URINARY BLADDER: No significant abnormality. REPRODUCTIVE ORGANS: No significant abnormality. ADDITIONAL FINDINGS: None. SKELETAL SYSTEM: No significant abnormality. IMPRESSION: No acute abnormality of the abdomen or pelvis. Signer Name: Ruben Velásquez MD Signed: 08/03/2019 2:31 AM Workstation Name: [id number] Transcribed By: AYESHA Dictated By: Ruben Velásquez MD Electronically Authenticated By: Ruben Velásquez MD Signed Date/Time: 08/03/19230 DD/ 6 TD/TT: ------- Findings [facility] [address] [place] [address] XRay Report Signed Patient: CIARAN MORALEZ MR#: [id number] : 1990 Acct:[id number] Age/Sex: 29 / F ADM Date: 08/02/19 Loc: ED Attending Dr: Ordering Physician: LORENZO VICENTE MD Date of Service: 08/02/19 Procedure(s): XR chest 1V ap Accession Number(s): [id number] cc: ED MD JULES Fluoro Time In Minutes: CHEST 1 VIEW 08/02/2019 11:09 PM INDICATION / CLINICAL INFORMATION: Chest Pain. COMPARISON: One view of the chest from 11/10/2018. FINDINGS: SUPPORT DEVICES: None. HEART / MEDIASTINUM: No significant abnormality. LUNGS / PLEURA: No significant pulmonary or pleural abnormality. No pneumothorax. ADDITIONAL FINDINGS: No significant additional findings. IMPRESSION: 1. No acute abnormality of the chest. Signer Name: Ruben Velásquez MD Signed: 08/02/2019 11:26 PM Workstation Name: [id number] Transcribed By: MN Dictated By: Ruben Velásquez MD Electronically Authenticated By: Ruben Velásquez MD Signed Date/Time: 08/02/192325 DD/ 24 TD/TT: - Medical Decision Making This is a 29-year-old female with no past medical history who presented to the ED with abdominal pain, pleuritic chest pain, dry cough, sore throat with subjective specks of blood whenever she coughs as well as nausea and vomiting for the last 3 days. In the ED, patient is alert and oriented 3 and is not in distress with normal vital signs. Lab test results were reviewed and are nonactionable. Chest x-ray shows no acute cardiopulmonary abnormalities. EKG shows normal sinus rhythm with a ventricular rate of [address] or T- wave abnormalities. Patient has no cardiac risk factors. Abdomen pelvis CT scan with contrast shows no acute abnormality. Patient was treated in the ED with antiemetics, antacids and also given normal saline IV fluids. On reevaluation, patient's symptoms have resolved in the ED patient has not had any chest pain or nausea or vomiting in the ED. Patient was discharged home on medications including antacids, antiemetics and was advised to follow-up with her primary care physician in 3-5 days for reevaluation or return to the ED immediately if symptoms get worse. - Differential Diagnosis Acute bronchitis; Acute gastroenteritis; Dehydration; URI Critical care attestation.: If time is entered above; I have spent that time in minutes in the direct care of this critically ill patient, excluding procedure time. ED Disposition Clinical Impression: Acute gastroenteritis, Acute upper respiratory infection, Nausea and vomiting in adult Acute bronchitis Qualifiers: Bronchitis organism: other organism Qualified Code(s): J20.8 - Acute bronchitis due to other specified organisms Disposition: DC-01 TO HOME OR SELFCARE Is pt being admited?: No Does the pt Need Aspirin: No Condition: Stable Instructions: Acute Bronchitis (ED), Gastroenteritis (ED), Acute Nausea and Vomiting (ED) Additional Instructions: Take medication with food, drink plenty of fluids and follow-up with your primary care physician in 5-7 days for reevaluation. Return to the ED immediately if symptoms get worse. Prescriptions: methylPREDNISolone [Medrol 4MG DOSEPAK (21 tabs)] 4 mg PO DAILY #21 tab.ds.pk Famotidine [Pepcid] 20 mg PO Q12H #60 tablet Benzonatate [Tessalon Perles] 100 mg PO Q8HR #30 capsule Azithromycin [Zithromax Z-GUNNAR] 250 mg PO DAILY #6 tablet Ondansetron [Zofran ODT TAB] 4 mg PO Q6HR PRN #20 tab.rapdis PRN Reason: Nausea Referrals: SHASTA RASHEED MD [Staff Physician] - 3-5 Days Forms: Accompanied Note, Work/School Release Form(ED) Time of Disposition: 03:42 Print Language: TUNISIAN
[2019-08-03 04:17] VITALS: BP 115/72
== END 2019-08-03 04:17 | disposition home or self-care (01) ==
LOC: ED 22:35
DX: K21.9 Gastro-esophageal reflux disease without esophagitis (principal); J20.8 Acute bronchitis due to other specified organisms; Z79.899 Other long term (current) drug therapy; R10.9 Unspecified abdominal pain
CPT/HCPCS: 36415; 71045; 74177; 80053; 84484; 84703; 85025; 93005; 93010; 96361; 96374; 96375; 99284; J1100; J2405; J7030; Q9967

== ENCOUNTER 2019-10-13 10:57 | Emergency (ER) | payer SELFPAY ==
[2019-10-13 11:59] VITALS: BP 117/76
--- NOTE | 2019-10-13 11:59 | Emergency Department Report ---
Blank Doc - Documentation Documentation: 29-year-old female that presents with pelvic pain. This initial assessment/diagnostic orders/clinical plan/treatment(s) is/are subject to change based on patient's health status, clinical progression and re- assessment by fellow clinical providers in the ED. Further treatment and workup at subsequent clinical providers discretion. Patient/guardians urged not to elope from the ED as their condition may be serious if not clinically assessed and managed. Initial orders include: 1- Patient sent to [facility] for further evaluation and treatment 2- UA
[2019-10-13 13:55] LABS: HCG Qualitative,Urine Positive (Negative)
[2019-10-13 14:11] LABS: Bilirubin,Urine NEG (Negative); Blood,Urine NEG (Negative); Color,Urine Straw (Yellow); Mucus,Urine FEW /HPF; Protein,Urine <15 mg/dL mg/dL (Negative); Urobilinogen,Urine < 2.0 mg/dL (<2.0)
== END 2019-10-13 16:21 ==
LOC: ED 10:57
DX: R10.2 Pelvic and perineal pain (principal); Z53.21 Procedure and treatment not carried out due to patient leaving prior to being seen by health care provider
CPT/HCPCS: 81001; 81025; 87086

== ENCOUNTER 2020-06-20 02:45 | Inpatient (IN) | payer OTHER, MEDICAID ==
--- NOTE | 2020-06-20 18:17 | Anesthesia Consultation ---
Anesthesia Consult and Med Hx Date of service: 06/20/20 - Airway Anesthetic Teeth Evaluation: Good ROM Head & Neck: Adequate Mental/Hyoid Distance: Adequate Mallampati Class: Class III Intubation Access Assessment: Probably Good - Pulmonary Exam CTA: Yes - Cardiac Exam Cardiac Exam: RRR - Pre-Operative Health Status ASA Pre-Surgery Classification: ASA2 Proposed Anesthetic Plan: Epidural - Pulmonary Hx Smoking: No Hx Sleep Apnea: No - Cardiovascular System Hx Hypertension: No Hx Heart Attack/AMI: No - Gastrointestinal Hx Gastroesophageal Reflux Disease: No - Endocrine Hx Insulin Dependent Diabetes: No Hx Non-Insulin Dependent Diabetes: No
--- NOTE | 2020-06-20 18:19 | Progress Note ---
Labor Epidural - Labor Epidural Start Time: 05:00 Stop Time: 05:20 Performed by:: JESSE GONZALEZ Procedure: Patient is requesting a laboring epidural for laboring pain. Patient IDed, H&P reviewed, all questions and concerns were answered, and consent was signed. Timeout was performed at bedside. Patient in sitting position. Sterile prep and drape was performed. 3ml of 1% lidocaine skin wheal at L[3]- L [4]. 18- gauge Touhy epidural needle was advanced with no success. 3ml of 1% lidocaine skin wheal at L[2]- L [3]. 18-gauge Touhy epidural needle was advanced, pt c/o need to push, procedure aborted. Patient tolerated procedure.
[2020-06-20] MEDS ORDERED: fentaNYL 100 MCG/2 ML INJ IV ONE (21:25)
[2020-06-20] MEDS ORDERED: MAGNESIUM SULFATE 4 GM/100 ML BAG IV ONE (21:26)
[2020-06-20] MEDS ORDERED: LACTATED RINGERS 1,000 ML IV ONE (21:26)
[2020-06-20] MEDS ORDERED: MAGNESIUM SULFATE 40GM/1000ML 40 GM/1,000 ML BAG IV SCH (22:00)
[2020-06-21] MEDS ORDERED: ePHEDrine SULFATE 50 MG/1 ML INJ IV PRN (02:18)
[2020-06-21] MEDS ORDERED: fentaNYL 100 MCG/2 ML INJ IV PRN (02:18)
[2020-06-21] MEDS ORDERED: BUTORPHANOL 2 MG/1 ML INJ IV PRN (02:18)
[2020-06-21] MEDS ORDERED: TERBUTALINE 1 MG/1 ML INJ SUB-Q PRN (02:18)
[2020-06-21] MEDS ORDERED: OXYTOCIN DRIP 30 UNITS/500 ML BAG IV SCH ×2 (03:00→04:00)
[2020-06-21] MEDS ORDERED: LACTATED RINGERS 1,000 ML IV SCH (03:00)
[2020-06-21] MEDS ORDERED: PROMETHAZINE 25 MG TAB PO PRN (03:01)
[2020-06-21] MEDS ORDERED: MAGNESIUM HYDROXIDE (MOM) ORAL LIQD UDC PO PRN (03:01)
[2020-06-21] MEDS ORDERED: WITCH HAZEL/ GLYCERIN PAD TP PRN (03:01)
[2020-06-21] MEDS ORDERED: PROMETHAZINE 25 MG RECT SUPP PR PRN (03:01)
[2020-06-21] MEDS ORDERED: diphenhydrAMINE 25 MG CAP PO PRN (03:01)
[2020-06-21] MEDS ORDERED: ACETAMINOPHEN 325 MG TAB PO PRN (03:01)
[2020-06-21] MEDS ORDERED: LANOLIN/ZINC/DIMETHICONE (LANSINOH) 7 GM TP PRN (03:01)
[2020-06-21] MEDS ORDERED: ONDANSETRON 4 MG/2 ML INJ IV PRN (03:01)
--- NOTE | 2020-06-21 07:40 | History and Physical Report ---
History of Present Illness Date of examination: 06/20/20 Date of admission: 06/20/20 02:45 Chief complaint: contractions History of present illness: This is a late entry to the medical records [facility] over 12 hours on 06/20/20. Pt is a 29 year old LEONARDO 06/19/20 at 40w1d who presents with regular contractions and advanced cervical dilation of 6 cm. She denies leakage of fluid or vaginal bleeding. 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 She is GBS negative. 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 ) Family/Genetic History: diabetes, hypertension Social history: no significant social history - Obstetrical History Expected Date of Delivery: 06/19/20 Actual Gestation: 40 Week(s) 2 Day(s) : 3 Para: 1 Hx # Term Pregnancies: 1 Number of Pregnancies: 0 Spontaneous Abortions: 1 Induced : 0 Number of Living Children: 1 Medications and Allergies Allergies Allergy/AdvReac Type Severity Reaction Status Date / Time No Known Allergies Allergy Verified 06/20/20 18:15 Home Medications Medication Instructions Recorded Confirmed Last Taken Type Albuterol Mdi (or & Nicu Only) 2 puff IH QID PRN #1 inhalation 11/10/18 Unknown Rx [ProAir HFA Inhaler] Fluticasone [Flonase] 1 spray NS QDAY #1 bottle 11/10/18 Unknown Rx HYDROcodone/APAP 5-325 [[place] 1 each PO Q4HR PRN #12 tablet 11/10/18 Unknown Rx 5/325] predniSONE [Deltasone] 20 mg PO QDAY #5 tab 11/10/18 Unknown Rx Naproxen 500 mg PO Q12H PRN #20 tablet 07/08/19 Unknown Rx Omeprazole 40 mg PO DAILY #30 capsule. 07/08/19 Unknown Rx Azithromycin [Zithromax Z-GUNNAR] 250 mg PO DAILY #6 tablet 08/03/19 Unknown Rx Benzonatate [Tessalon Perles] 100 mg PO Q8HR #30 capsule 08/03/19 Unknown Rx Famotidine [Pepcid] 20 mg PO Q12H #60 tablet 08/03/19 Unknown Rx Ondansetron [Zofran ODT TAB] 4 mg PO Q6HR PRN #20 tab.rapdis 08/03/19 Unknown Rx methylPREDNISolone [Medrol 4MG 4 mg PO DAILY #21 tab.ds.pk 08/03/19 Unknown Rx DOSEPAK (21 tabs)] Active Meds: Active Medications Acetaminophen (Tylenol) 650 mg PO Q4H PRN PRN Reason: Pain MILD(1-3)/Fever >100.5/MARTE Hydrocodone Bitart/Acetaminophen ([place] 5/325) 1 each PO Q4H PRN PRN Reason: Pain, Moderate (4-6) Bisacodyl (Dulcolax) 10 mg DC BID PRN PRN Reason: Constipation Butorphanol Tartrate (Stadol) 2 mg IV Q2H PRN PRN Reason: Pain , Severe (7-10) Diphenhydramine HCl (Benadryl) 25 mg PO Q6H PRN PRN Reason: Itching Diphtheria/Tetanus/Acell Pertussis (Adacel) 0.5 ml IM .ONCE ONE Stop: 06/22/20 06:01 Ephedrine Sulfate (Ephedrine Sulfate) 10 mg IV Q2M PRN PRN Reason: Hypotension Fentanyl (Sublimaze) 100 mcg IV Q2H PRN PRN Reason: Pain,Severe (7-10) LABOR PAIN Magnesium Sulfate (Magnesium Sulfate 40gm/1000ml) 40 gm in 1,000 mls @ 50 mls/hr IV DIRECT A[place] Last Admin: 06/21/20 04:18 Dose: 2 gm/hr, 50 mls/hr Documented by: Oxytocin/Sodium Chloride (Pitocin/Ns 30 Unit/500ml) 30 units in 500 mls @ 2 mls/hr IV TITR [place]; Protocol Lactated Ringer's (Lactated Ringers) 1,000 mls @ 125 mls/hr IV DIRECT A[facility] Oxytocin/Sodium Chloride (Pitocin/Ns 30 Unit/500ml) 30 units in 500 mls @ 40 mls/hr IV TITR [place]; Protocol Ibuprofen (Ibuprofen) 600 mg PO Q6HR [place] Magnesium Hydroxide (Milk Of Magnesia) 30 ml PO HS PRN PRN Reason: Constipation Measles/Mumps/Rubella Vaccine Live (M-M-R Ii Vaccine) 0.5 ml SUB-Q .ONCE ONE Stop: 06/22/20 03:02 Multi-Ingredient Ointment (Lansinoh) 1 applic TP PRN PRN PRN Reason: Sore Nipples Ondansetron HCl (Zofran) 4 mg IV Q8H PRN PRN Reason: Nausea And Vomiting Promethazine HCl (Phenergan) 25 mg DC Q6H PRN PRN Reason: Nausea And Vomiting Promethazine HCl (Phenergan) 25 mg PO Q6H PRN PRN Reason: Nausea And Vomiting Sodium Chloride (Sodium Chloride Flush Syringe 10 Ml) 10 ml IV PRN PRN PRN Reason: LINE FLUSH Terbutaline Sulfate (Brethine) 0.25 mg SUB-Q ONCE PRN PRN Reason: Hyperstimulation/Hypertonicity Witch Yesy/Glycerin (Tucks Pad) 1 each TP PRN PRN PRN Reason: Hemorrhoid/cleansing/soothing Review of Systems All systems: negative - Vital Signs Vital signs: Vital Signs Resp 18 06/20/20 06:00 Temp Pulse Resp BP Pulse Ox 98.2 F 102 H 18 128/67 06/20/20 20:08 06/20/20 20:08 06/20/20 20:08 06/20/20 20:08 - Physical Exam Breasts: Positive: deferred Abdomen: Positive: soft (gravid ) Uterus: Positive: enlarged (gravid ) Extremities: Positive: normal - Obstetrical FHR: auscultation normal Uterine Contraction Monitor Mode: External Cervical Dilatation: 6 (per RN ) Uterine Contraction Pattern: Regular Uterine Tone Measurement Phase: Resting Uterine Contraction Intensity: Strong/Firm Results All other labs normal. Assessment and Plan A: IUP at 40w1d Active labor Genital Herpes without lesion or prodrome GBS Negative P: Admit to labor and delivery Routine intrapartum care Anticipate vaginal delivery
--- NOTE | 2020-06-21 07:41 | Procedure Note ---
OB Delivery Note - Delivery Date of Delivery: 06/20/20 Surgeon: MARC GARCIA Estimated blood loss: 500cc - Vaginal Delivery presentation: vertex Delivery position: OA Intrapartum events: PROM->1hr before delivery, meconium, preeclampsia Delivery induction: none Delivery monitor: external FHT, external uterine Route of delivery: Delivery placenta: spontaneous Episiotomy: none Delivery laceration: none Anesthesia: none - Infant A at 1 minute: 8 at 5 minutes: 9 Gender: Female (2635g (5lb 13 oz) @ 0535 am)
[2020-06-21] MEDS: HYDROcodone/ACETAMINOPHEN 5-325 MG TAB PO PRN (08:31)
[2020-06-21] MEDS: IBUPROFEN 600 MG TAB PO SCH ×3 (12:13→17:21)
--- NOTE | 2020-06-21 13:48 | Progress Note ---
Assessment and Plan A: PPD1, complicated by preclamapsia w/ severe features BPs normotensive, magnesium sulfate d/c Pain well controlled Infant bottle feeding q3h with adequate output P: Possible ferrous sulfate supplementation depending on CBC D/c 06/22 pending preE labwork RTC 1 week for in office visit Subjective - Subjective Date of service: 06/21/20 Principal diagnosis: S/p , preeclampsia with severe features Interval history: PPD1 from . Intrapartum complicated by preeclampsia with severe features, magnesium sulfate given on L&D. Currently denies s/sx of preeclampsia including MARTE, scotoma and UQ pain. BPs normotensive. Patient reports: appetite normal, voiding normally, pain well controlled, flatus, ambulating normally : doing well, bottle feeding Objective - Vital Signs Latest vital signs: Vital Signs Temp Pulse Resp BP Pulse Ox 06/21/20 12:00 98.4 F 80 18 109/63 97 06/21/20 10:09 98.6 F 86 19 126/81 99 06/21/20 08:18 98.8 F 88 06/20/20 20:08 98.2 F 102 H 18 128/67 06/20/20 18:00 98 F 18 Intake and Output 06/20/20 06/21/20 06/21/20 23:59 07:59 15:59 Intake Total 438.333 Output Total 1950 1700 1200 Balance -1950 -0 -761.667 Intake: IV 198.333 MAGNESIUM SULFATE 40GM/ 198.333 1000ML 40 gm In 1,000 ml @ 2 GM/HR 50 mls/hr IV DIRECT AURORA Rx#:[id number] Oral 240 Output: Urine 1949 1700 1200 Indwelling Catheter 1949 1700 1200 Other: Total, Intake Amount 240 Total, Output Amount 239 383 7156 Weight 173 lb - Exam Breasts: Present: normal Lungs: Present: Normal air movement Abdomen: Present: normal appearance, soft. Absent: distention Uterus: Present: normal, fundal height below umbilicus. Absent: bogginess Extremities: Present: normal Incision: Present: intact - Labs Labs: Abnormal lab results 06/21/20 Range/Units 08:32 Magnesium 4.70 H (1.7-2.3) mg/dL
[2020-06-21 19:14] LABS: Hematocrit 33.5 % (30.3-42.9); Hemoglobin 10.9 gm/dl (10.1-14.3); Mean Corpuscular HGB Conc 32 % (30-34); Mean Corpuscular Volume 88 fl (79-97); Platelet Count 280 K/mm3 (140-440); Red Blood Count 3.79 M/mm3 (3.65-5.03); Red Cell Distribution Width 15.6 % (13.2-15.2)
[2020-06-21 19:36] LABS: Alanine Aminotransferase 19 units/L (7-56); Blood Urea Nitrogen 8 mg/dL (7-17); Calcium 8.4 mg/dL (8.4-10.2); Hemolysis Index 14; Uric Acid 4.8 mg/dL (3.5-7.6)
[2020-06-21 19:52] LABS: BUN/Creatinine Ratio 11
[2020-06-22] MEDS: IBUPROFEN 600 MG TAB PO SCH ×4 (01:18→17:24)
[2020-06-22] MEDS ORDERED: MEASLES, MUMPS & RUBELLA 12,500 UNIT/0.5 ML VACCINE SUB-Q ONE (03:01)
[2020-06-22] MEDS ORDERED: DIPHtheria,PERTUSSIS(ACELL),TETANUS VACCINE/PF 0.5 ML VIAL IM ONE (06:00)
--- NOTE | 2020-06-22 08:06 | Progress Note ---
Assessment and Plan A: PPD2 s/p Pree with severe features s/p mag sulfate Vital signs and labs stable P: Discharge to home today with close clinical follow up Subjective - Subjective Date of service: 06/22/20 Principal diagnosis: S/p , preeclampsia with severe features Interval history: PPD2 s/p and severe pree, s/p mag sulfate Patient reports: appetite normal, voiding normally, pain well controlled, a mbulating normally : doing well, bottle feeding Objective - Vital Signs Latest vital signs: Vital Signs Temp Pulse Resp BP BP Pulse Ox 06/22/20 00:00 98.6 F 77 16 112/78 06/21/20 20:13 97.2 F L 87 18 132/81 97 06/21/20 16:30 98.3 F 81 18 116/64 97 06/21/20 12:00 98.4 F 80 18 109/63 97 06/21/20 10:09 98.6 F 86 19 126/81 99 06/21/20 08:18 98.8 F 88 Intake and Output 06/21/20 06/22/20 06/22/20 23:59 07:59 15:59 Intake Total 300 Output Total 200 Balance 100 Intake: Intake, Free Water 300 Output: Urine 200 Indwelling Catheter 200 Other: Total, Output Amount 200 # Voids Indwelling Catheter 2 Void 1 1 - Exam Lungs: Present: Normal air movement Abdomen: Present: soft. Absent: distention Uterus: Present: firm, fundal height below umbilicus. Absent: bogginess Extremities: Present: normal - Labs Labs: Abnormal lab results 06/21/20 06/21/20 06/21/20 Range/Units 08:32 19:00 19:00 WBC 12.1 H (4.5-11.0) K/mm3 RDW 15.6 H (13.2-15.2) % Magnesium 4.70 H (1.7-2.3) mg/dL Alkaline Phosphatase 181 H (35-129) units/L Total Protein 5.8 L (6.3-8.2) g/dL Albumin 3.0 L (3.9-5) g/dL
--- NOTE | 2020-06-22 08:08 | Discharge Summary ---
Providers - Providers Date of Admission: 06/20/20 02:45 Date of discharge: 06/22/20 Attending physician: MARC GARCIA Primary care physician: MARC GARCIA Hospitalization Reason for admission: active labor, IUP at term Delivery: Laceration: none complications: other (preeclampsia with severe features) Discharge diagnosis: IUP at term delivered Hospital course: Pt had a and received magnesium sulfate for 24 hours due to preeclampsia with severe features. She met discharge criteria on PPD2. Condition at discharge: Good Disposition: DC-01 TO HOME OR SELFCARE Plan - Discharge Medications Prescriptions: Ferrous Sulfate [Feosol 325 MG tab] 325 mg PO BID #60 tablet Ibuprofen [Motrin] 800 mg PO Q8HR PRN #30 tablet PRN Reason: Pain, Moderate (4-6) - Provider Discharge Summary Activity: routine, no sex for 6 weeks, no heavy lifting 4 weeks, no strenuous exercise Diet: routine Instructions: routine Additional instructions: [] Smoking cessation referral if applicable(refer to patient education folder for contact #) [] Refer to [facility]'s [facility] Booklet Call your doctor immediately for: * Fever > 100.5 * Heavy vaginal bleeding ( >1 pad per hour) * Severe persistent headache * Shortness of breath * Reddened, hot, painful area to leg or breast * Drainage or odor from incision. * Keep incision clean and dry at all times and follow doctor's instructions regarding bathing/showering - Follow up plan Follow up: MARC GARCIA MD [Primary Care Provider] - 7 Days (Please call office to schedule appointment.)
[2020-06-22 16:36] VITALS: BP 142/80
[2020-06-22] MEDS: HYDROcodone/ACETAMINOPHEN 5-325 MG TAB PO PRN (17:25)
== END 2020-06-22 17:45 | disposition home or self-care (01) | DRG 806 ==
LOC: LD 02:45 → OB 06-21 10:15
PROVIDERS: ADMIT Obstetrics & Gynecology; ATTEND Obstetrics & Gynecology
PROC: 10E0XZZ Delivery of Products of Conception, External Approach (ICD-10-PCS; principal; 2020-06-20)
PROC: 3E0234Z Introduction of Serum, Toxoid and Vaccine into Muscle, Percutaneous Approach (ICD-10-PCS; 2020-06-22)
PROC: 3E0134Z Introduction of Serum, Toxoid and Vaccine into Subcutaneous Tissue, Percutaneous Approach (ICD-10-PCS; 2020-06-22)
DX: O14.14 Severe pre-eclampsia complicating childbirth (principal); O98.32 Other infections with a predominantly sexual mode of transmission complicating childbirth; Z37.0 Single live birth; O77.0 Labor and delivery complicated by meconium in amniotic fluid; O42.92 Full-term premature rupture of membranes, unspecified as to length of time between rupture and onset of labor; Z20.828 Contact with and (suspected) exposure to other viral communicable diseases; A60.00 Herpesviral infection of urogenital system, unspecified; Z82.49 Family history of ischemic heart disease and other diseases of the circulatory system; Z3A.40 40 weeks gestation of pregnancy; Z23 Encounter for immunization; Z83.3 Family history of diabetes mellitus; Z79.899 Other long term (current) drug therapy
CPT/HCPCS: 36415; 80053; 83735; 84550; 85027; 86592; 86850; 86900; 86901; 88307; G0378; J3010; J3475; J7120; U0003

== ENCOUNTER 2020-09-05 08:01 | Emergency (ER) | payer OTHER, MEDICAID ==
[2020-09-05 09:47] LABS: Bilirubin,Urine NEG (Negative); Blood,Urine NEG (Negative); Color,Urine Straw (Yellow); Mucus,Urine FEW /HPF; Protein,Urine <15 mg/dL mg/dL (Negative); Urobilinogen,Urine < 2.0 mg/dL (<2.0)
[2020-09-05 09:50] LABS: Basophils % (Auto) 0.3 % (0.0-1.8); Eosinophils # (Auto) 0.3 K/mm3 (0.0-0.4); Eosinophils % (Auto) 3.7 % (0.0-4.3); Hematocrit 32.3 % (30.3-42.9); Hemoglobin 10.5 gm/dl (10.1-14.3); Lymphocytes # (Auto) 1.6 K/mm3 (1.2-5.4); Lymphocytes % (Auto) 19.6 % (13.4-35.0); Mean Corpuscular HGB Conc 33 % (30-34); Mean Corpuscular Volume 88 fl (79-97); Monocytes # (Auto) 0.5 K/mm3 (0.0-0.8); Monocytes % (Auto) 6.4 % (0.0-7.3); Platelet Count 450 K/mm3 (140-440); Red Blood Count 3.68 M/mm3 (3.65-5.03)
[2020-09-05 10:09] LABS: Alanine Aminotransferase 26 units/L (7-56); Albumin 4.2 g/dL (3.9-5); BUN/Creatinine Ratio 14; Blood Urea Nitrogen 10 mg/dL (7-17); Calcium 9.5 mg/dL (8.4-10.2); Hemolysis Index 2
--- NOTE | 2020-09-05 10:33 | XRay Report ---
XR chest routine 2V INDICATION / CLINICAL INFORMATION: Chest pain COMPARISON: August 02, 2019 FINDINGS: SUPPORT DEVICES: None. HEART / MEDIASTINUM: No significant abnormality. LUNGS / PLEURA: Lungs are clear. Costophrenic sulci are sharp. No pneumothorax. ADDITIONAL FINDINGS: No significant additional findings. IMPRESSION: 1. No acute findings. Signer Name: Donovan Marroquin MD Signed: 09/05/2020 10:28 AM Workstation Name: [id number]
--- NOTE | 2020-09-05 12:27 | Emergency Department Report ---
HPI - General Chief Complaint: Abdominal Pain Time Seen by Provider: 09/05/20 12:15 - HPI HPI: Room 36 The patient is a 30-year-old female present with a chief complaint of chest and abdominal pain. The patient states for the past week she has had intermittent pain in the left chest in addition to lower abdominal pain. Patient denies nausea vomiting or shortness of breath. Patient denies cough but states at work she was told she had a fever 101 F. Patient is approximately 9 weeks spontaneous vaginal delivery and states she is not breast-feeding ED Past Medical Hx - Past Medical History Previous Medical History?: No - Surgical History Past Surgical History?: No - Family History Family history: no significant - Social History Smoking Status: Never Smoker Substance Use Type: None (Denies illicit drug use) - Medications Home Medications: Home Medications Medication Instructions Recorded Confirmed Last Taken Type Albuterol Mdi (or & Nicu Only) 2 puff IH QID PRN #1 inhalation 11/10/18 Unknown Rx [ProAir HFA Inhaler] Fluticasone [Flonase] 1 spray NS QDAY #1 bottle 11/10/18 Unknown Rx HYDROcodone/APAP 5-325 [[place] 1 each PO Q4HR PRN #12 tablet 11/10/18 Unknown Rx 5/325] predniSONE [Deltasone] 20 mg PO QDAY #5 tab 11/10/18 Unknown Rx Naproxen 500 mg PO Q12H PRN #20 tablet 07/08/19 Unknown Rx Omeprazole 40 mg PO DAILY #30 capsule. 07/08/19 Unknown Rx Azithromycin [Zithromax Z-GUNNAR] 250 mg PO DAILY #6 tablet 08/03/19 Unknown Rx Benzonatate [Tessalon Perles] 100 mg PO Q8HR #30 capsule 08/03/19 Unknown Rx Famotidine [Pepcid] 20 mg PO Q12H #60 tablet 08/03/19 Unknown Rx Ondansetron [Zofran ODT TAB] 4 mg PO Q6HR PRN #20 tab.rapdis 08/03/19 Unknown Rx methylPREDNISolone [Medrol 4MG 4 mg PO DAILY #21 tab.ds.pk 08/03/19 Unknown Rx DOSEPAK (21 tabs)] Ferrous Sulfate [Feosol 325 MG tab] 325 mg PO BID #60 tablet 06/21/20 Unknown Rx Ibuprofen [Motrin] 800 mg PO Q8HR PRN #30 tablet 06/21/20 Unknown Rx Famotidine [Pepcid] 20 mg PO BID #20 tablet 09/05/20 Unknown Rx traMADoL [Ultram] 50 mg PO Q6HR PRN #10 tablet 09/05/20 Unknown Rx ED Review of Systems ROS: Stated complaint: ABD/CHEST PAIN/FEVER Other details as noted in HPI Constitutional: fever Eyes: denies: eye pain ENT: denies: throat pain Respiratory: denies: cough, shortness of breath Cardiovascular: chest pain Endocrine: no symptoms reported Gastrointestinal: denies: nausea, vomiting Genitourinary: denies: dysuria Musculoskeletal: denies: back pain Neurological: denies: confusion Physical Exam - Physical Exam Vital Signs: Vital Signs 09/05/20 09/05/20 08:23 12:11 Temperature 98 F Pulse Rate 88 Respiratory 18 16 Rate Blood Pressure 120/71 O2 Sat by Pulse 99 Oximetry Physical Exam: GENERAL: The patient is well-developed well-nourished female sitting on stretcher holding baby not appearing to be in acute distress. [] HEENT: Normocephalic. Atraumatic. Extraocular motions are intact. Patient has moist mucous membranes. NECK: Supple. Trachea midline CHEST/LUNGS: Clear to auscultation. There is no respiratory distress noted. HEART/CARDIOVASCULAR: Regular. There is no tachycardia. There is no gallop rub or murmur. ABDOMEN: Abdomen is soft, with mild tenderness to palpation left lower quadrant and trace discomfort to palpation in the right lower quadrant. Patient has normal bowel sounds. There is no abdominal distention. SKIN: There is no rash. There is no edema. There is no diaphoresis. NEURO: The patient is awake, alert, and oriented. The patient is cooperative. The patient has normal speech MUSCULOSKELETAL: There is no evidence of acute injury. ED Course Vital Signs 09/05/20 09/05/20 08:23 12:11 Temperature 98 F Pulse Rate 88 Respiratory 18 16 Rate Blood Pressure 120/71 O2 Sat by Pulse 99 Oximetry ED Medical Decision Making - Lab Data Result diagrams: 09/05/20 09:09 09/05/20 09:09 - Radiology Data Radiology results: report reviewed (CT chest, CT abdomen pelvis, chest x-ray), image reviewed (CT chest, CT abdomen pelvis, chest x-ray) interpreted by me: Chest x-ray-no focal infiltrates, no pneumothorax, no foreign body seen Findings [address] [address] Cat Scan Report Signed Patient: CIARAN MORALEZ MR#: [id number] : 1990 Acct:[id number] Age/Sex: 30 / F ADM Date: 09/05/20 Loc: ED Attending Dr: Ordering Physician: MARLENE LANE MD Date of Service: 09/05/20 P rocedure(s): CT angio chest Accession Number(s): [id number] cc: MARLENE LANE MD CTA CHEST WITH CONTRAST INDICATION : Lower abdominal pain. 9 weeks . Chest pain TECHNIQUE: Axial imaging performed through the chest, with contrast bolus timing set to maximize opacification of the pulmonary arteries. Sagittal and coronal reformatted images. 3-plane MIP reformatted images were obtained. All CT scans at this location are performed using CT dose reduction for ALARA by means of automated exposure control. 100 mL of intravenous contrast administered. COMPARISON: 07/08/2019 FINDINGS: Bolus: Contrast bolus timing is adequate. PTE: No filling defect is present to suggest PTE. Mediastinum: Heart a nd great vessels appear normal. No pathologic mediastinal adenopathy. Lungs: Lungs are clear. Bones: Degenerative changes in the spine with nothing acute. Upper abdomen: Limited imaging of the upper abdomen shows nothing acute. IMPRESSION: Negative for PTE. Clear lungs. Signer Name: Alfred Rogel Jr, MD Signed: 09/05/2020 1:01 PM Workstation Name: [id number] Transcribed By: TTR Dictated By: ALFRED ROGEL JR, MD Electronically Authenticated By: ALFRED ROGEL JR, MD Signed Date/Time: 09/05/20 1301 DD/ 1300 TD/TT: Findings [address] [address] Cat Scan Report Signed Patient: CIARAN MORALEZ MR#: [id number] : 1990 Acct:[id number] Age/Sex: 30 / F ADM Date: 09/05/20 Loc: ED Attending Dr: Ordering Physician: MARLENE LANE MD Date of Service: 09/05/20 Procedure(s): CT abdomen pelvis w con Accession Number(s): [id number] cc: MARLENE LANE MD CT abdomen pelvis w con INDICATION: Pain. 9 weeks . COMPARISON: None TECHNIQUE: Abdominal and pelvic CT exam performed. All CT scans at this location are performed using CT dose reduction for ALARA by means of automated exposure control. FINDINGS: CT ABDOMEN and PELVIS: Lung Bases: No significant abnormality. Liver: No significant abnormality. Biliary: No significant abnormality. Spleen: No significant abnormality. Pancreas: No significant abnormality. Adrenals: No significant abnormality. Kidneys: No significant abnormality. Unchanged phlebolith anterior to the left distal ureter. No stones. No hydronephrosis. Lymphatics: No lymphadenopathy. Vasculature: No significant abnormality. Bowel: No significant abnormality. Normal appendix. Pelvis: No significant abnormality. Osseous Structures: No aggressive osseous lesion. Additional Findings: None IMPRESSION: 1. No significant abnormality of the abdomen or pelvis. Signer Name: Donovan Marroquin MD Signed: 09/05/2020 1:08 PM Workstation Name: [id number] Transcribed By: CS Dictated By: Donovan Marroquin MD Electronically Authenticated By: Donovan Marroquin MD Signed Date/Time: 09/05/20 1308 DD/ 1305 TD/TT: Findings [facility] [address] [place] [address] XRay Report Signed Patient: CIARAN MORALEZ MR#: [id number] : 1990 Acct:[id number] Age/Sex: 30 / F ADM Date: 09/05/20 Loc: ED Attending Dr: Ordering Physician: RASHMI WHITLEY Date of Service: 09/05/20 Procedure(s): XR chest routine 2V Accession Number(s): [id number] cc: RASHMI WHITLEY Fluoro Time In Minutes: XR chest routine 2V INDICATION / CLINICAL INFORMATION: Chest pain COMPARISON: August 02, 2019 FINDINGS: SUPPORT DEVICES: None. HEART / MEDIASTINUM: No significant abnormality. LUNGS / PLEURA: Lungs are clear. Costophrenic sulci are sharp. No pneumothorax. ADDITIONAL FINDINGS: No significant additional findings. IMPRESSION: 1. No acute findings. Signer Name: Donovan Marroquin MD Signed: 09/05/2020 10:28 AM Workstation Name: [id number] Transcribed By: CS Dictated By: Donovan Marroquin MD Electronically Authenticated By: Donovan Marroquin MD Signed Date/Time: 09/05/20 1028 DD/ TD/TT: - Differential Diagnosis Costochondritis, PE, pericarditis, ACS, UTI, diverticulitis, Critical care attestation.: If time is entered above; I have spent that time in minutes in the direct care of this critically ill patient, excluding procedure time. ED Disposition Clinical Impression: Atypical chest pain Disposition: TO HOME OR SELFCARE Is pt being admited?: No Does the pt Need Aspirin: No Condition: Stable Instructions: Abdominal Pain (ED), Chest Pain (ED), Nonspecific Chest Pain, Adult Additional Instructions: Return to the emergency department should you develop worsening symptoms, inability to tolerate food or liquids, high fever or any other concerns Prescriptions: Famotidine [Pepcid] 20 mg PO BID #20 tablet traMADoL [Ultram] 50 mg PO Q6HR PRN #10 tablet PRN Reason: Pain Referrals: PRIMARY CARE, [Primary Care Provider] - 3-5 Days Time of Disposition: 13:37
--- NOTE | 2020-09-05 13:05 | Cat Scan Report ---
CTA CHEST WITH CONTRAST INDICATION : Lower abdominal pain. 9 weeks . Chest pain TECHNIQUE: Axial imaging performed through the chest, with contrast bolus timing set to maximize opa cification of the pulmonary arteries. Sagittal and coronal reformatted images. 3-plane MIP reformatte d images were obtained. All CT scans at this location are performed using CT dose reduction for ALAR A by means of automated exposure control. 100 mL of intravenous contrast administered. COMPARISON: 07/08/2019 FINDINGS: Bolus: Contrast bolus timing is adequate. PTE: No filling defect is present to suggest PTE. Mediastinum: Heart and great vessels appear normal. No pathologic mediastinal adenopathy. Lungs: Lungs are clear. Bones: Degenerative changes in the spine with nothing acute. Upper abdomen: Limited imaging of the upper abdomen shows nothing acute. IMPRESSION: Negative for PTE. Clear lungs. Signer Name: Alfred Rogel Jr, MD Signed: 09/05/2020 1:01 PM Workstation Name: [id number]
--- NOTE | 2020-09-05 13:12 | Cat Scan Report ---
CT abdomen pelvis w con INDICATION: Pain. 9 weeks . COMPARISON: None TECHNIQUE: Abdominal and pelvic CT exam performed. All CT scans at this location are performed using CT dose reduction for ALARA by means of automated exposure control. FINDINGS: CT ABDOMEN and PELVIS: Lung Bases: No significant abnormality. Liver: No significant abnormality. Biliary: No significant abnormality. Spleen: No significant abnormality. Pancreas: No significant abnormality. Adrenals: No significant abnormality. Kidneys: No significant abnormality. Unchanged phlebolith anterior to the left distal ureter. No ston es. No hydronephrosis. Lymphatics: No lymphadenopathy. Vasculature: No significant abnormality. Bowel: No significant abnormality. Normal appendix. Pelvis: No significant abnormality. Osseous Structures: No aggressive osseous lesion. Additional Findings: None IMPRESSION: 1. No significant abnormality of the abdomen or pelvis. Signer Name: Donovan Marroquin MD Signed: 09/05/2020 1:08 PM Workstation Name: [id number]
[2020-09-05 13:52] VITALS: BP 123/94
== END 2020-09-05 14:09 | disposition home or self-care (01) ==
LOC: ED 08:01
DX: R07.89 Other chest pain (principal); Z79.899 Other long term (current) drug therapy
CPT/HCPCS: 36415; 71046; 71275; 74177; 80053; 81001; 84484; 84703; 85025; 93005; 99284; Q9967

== ENCOUNTER 2021-10-01 10:10 | Emergency (ER) | payer OTHER, MEDICAID ==
--- NOTE | 2021-10-01 10:54 | Emergency Department Report ---
ED Abdominal Pain HPI - General Chief Complaint: Pain General Stated Complaint: SOB,ABD PAIN Time Seen by Provider: 10/01/21 10:51 Source: patient Mode of arrival: Ambulatory Limitations: No Limitations - History of Present Illness Initial Comments: 31 yo AA comes to ER co lower abd pain- suprapubic. Some dysuria. No fever or chills. Some back pain. No N/V/D. LMP 1 m ago. No vag bleeding. No vag d/c. Not concerned for STI. 1 male sexual partner. She has hx of gerd and initially said she was not taking her PPI but then later said that she is taking it. On d/c the pt states that she thought she was MD Complaint: abdominal pain -: Gradual, days(s) Location: suprapubic Severity: mild Severity scale (0 -10): 8 Quality: cramping Consistency: constant Improves With: nothing Worsens With: nothing - Related Data LMP (females 10-50): 1 month Previous Rx's Medication Instructions Recorded Last Taken Type Albuterol Mdi (or & Nicu Only) 2 puff IH QID PRN #1 inhalation 11/10/18 Unknown Rx [ProAir HFA Inhaler] Pantoprazole [Protonix TAB] 20 mg PO QDAY #30 tablet. 10/01/21 Unknown Rx Sulfamethoxazole/Trimethoprim 1 each PO BID #10 10/01/21 Unknown Rx [Bactrim DS TAB] Allergies Allergy/AdvReac Type Severity Reaction Status Date / Time No Known Allergies Allergy Verified 10/01/21 10:40 ED Review of Systems ROS: Stated complaint: SOB,ABD PAIN Other details as noted in HPI Comment: All other systems reviewed and negative ED Past Medical Hx - Past Medical History Previous Medical History?: No Hx Hypertension: No Hx Heart Attack/AMI: No Hx Congestive Heart Failure: No Hx Diabetes: No Hx Deep Vein Thrombosis: No Hx Renal Disease: No Hx Sickle Cell Disease: No Hx Seizures: No Hx Asthma: No Hx COPD: No Hx HIV: No - Surgical History Past Surgical History?: No - Family History Family history: no significant - Social History Smoking Status: Never Smoker Substance Use Type: None (Denies illicit drug use) - Medications Home Medications: Home Medications Medication Instructions Recorded Confirmed Last Taken Type Albuterol Mdi (or & Nicu Only) 2 puff IH QID PRN #1 inhalation 11/10/18 Unknown Rx [ProAir HFA Inhaler] Pantoprazole [Protonix TAB] 20 mg PO QDAY #30 tablet. 10/01/21 Unknown Rx Sulfamethoxazole/Trimethoprim 1 each PO BID #10 10/01/21 Unknown Rx [Bactrim DS TAB] ED Physical Exam - General Limitations: No Limitations General appearance: alert, in no apparent distress - Head Head exam: Present: atraumatic, normocephalic - Eye Eye exam: Present: normal appearance - ENT ENT exam: Present: mucous membranes moist - Neck Neck exam: Present: normal inspection - Respiratory Respiratory exam: Present: normal lung sounds bilaterally. Absent: respiratory distress - Cardiovascular Cardiovascular Exam: Present: regular rate, normal rhythm. Absent: systolic murmur, diastolic murmur, rubs, gallop - GI/Abdominal GI/Abdominal exam: Present: soft, normal bowel sounds - Extremities Exam Extremities exam: Present: normal inspection - Back Exam Back exam: Present: normal inspection - Neurological Exam Neurological exam: Present: alert, oriented X3 - Psychiatric Psychiatric exam: Present: normal affect, normal mood - Skin Skin exam: Present: warm, dry, intact, normal color. Absent: rash ED Course Vital Signs 10/01/21 10:39 Temperature 98.4 F Pulse Rate 84 Respiratory 14 Rate Blood Pressure 123/94 [Left] O2 Sat by Pulse 100 Oximetry ED Medical Decision Making - Medical Decision Making Labs 10/01/21 Unknown Urine Color Yellow Urine Turbidity Clear Urine pH 6.0 Ur Specific [place] 1.015 Urine Protein <15 mg/dl Urine Glucose (UA) Neg Urine Ketones Neg Urine Blood Mod Urine Nitrite Neg Urine Bilirubin Neg Urine Urobilinogen < 2.0 Ur Leukocyte Esterase Sm Urine WBC (Auto) 2.0 Urine RBC (Auto) 1.0 U Epithel Cells (Auto) 2.0 Urine Bacteria (Auto) Not Reportable Urine HCG, Qual Negative Vital Signs 10/01/21 10:39 Temperature 98.4 F Pulse Rate 84 Respiratory 14 Rate Blood Pressure 123/94 [Left] O2 Sat by Pulse 100 Oximetry u preg neg ua noted taking po non toxic and non ill appearing. dc home with dc plan of care including diet, activity, meds and follow up. She verbalizes understanding plan of care. - Differential Diagnosis ro uti/preg Critical care attestation.: If time is entered above; I have spent that time in minutes in the direct care of this critically ill patient, excluding procedure time. ED Disposition Clinical Impression: UTI (urinary tract infection) Qualifiers: Urinary tract infection type: site unspecified Hematuria presence: with hematuria Qualified Code(s): N39.0 - Urinary tract infection, site not specified Disposition: HOME / SELF CARE / HOMELESS Is pt being admited?: No Does the pt Need Aspirin: No Condition: Stable Instructions: Urinary Tract Infection, Adult, [id number] Additional Instructions: med as ordered today until gone tylenol or motrin for pain follow up with pcp next week to be sure this is better Prescriptions: Sulfamethoxazole/Trimethoprim [Bactrim DS TAB] 1 each PO BID #10 Pantoprazole [Protonix TAB] 20 mg PO QDAY #30 tablet.dr Referrals: SHASTA RASHEED MD [Staff Physician] - 3-5 Days Time of Disposition: 13:14
[2021-10-01] MEDS ORDERED: ALUM-MAG HYDROXIDE-SIMETHICONE 200-200-20MG/5ML ORAL LIQD 30 ML PO ONE (10:55)
[2021-10-01] MEDS ORDERED: LIDOCAINE VISCOUS 2% 15 ML ORAL LIQD PO ONE (10:55)
[2021-10-01] MEDS ORDERED: FAMOTIDINE 20 MG TAB PO ONE (10:56)
[2021-10-01 12:46] LABS: Bilirubin,Urine NEG (Negative); Blood,Urine MOD (Negative); Color,Urine Yellow (Yellow); Protein,Urine <15 mg/dL mg/dL (Negative); Urobilinogen,Urine < 2.0 mg/dL (<2.0)
[2021-10-01 12:49] LABS: HCG Qualitative,Urine Negative (Negative)
[2021-10-01] MEDS ORDERED: SULFAMETHOXAZOLE/TRIMETHOPRIM 800/160MG DS TAB PO ONE (13:15)
[2021-10-01 13:49] VITALS: BP 119/77
== END 2021-10-01 13:47 | disposition home or self-care (01) ==
LOC: ED 10:10
DX: N39.0 Urinary tract infection, site not specified (principal); Z79.899 Other long term (current) drug therapy
CPT/HCPCS: 81001; 81025; 99283

== ENCOUNTER 2021-10-05 05:25 | Emergency (ER) | payer OTHER, MEDICAID ==
[2021-10-05 06:29] VITALS: BP 138/88
[2021-10-05] MEDS ORDERED: MORPHINE 4 MG/1 ML INJ IV ONE (07:40)
[2021-10-05] MEDS ORDERED: ONDANSETRON 4 MG/2 ML INJ IV ONE (07:40)
[2021-10-05] MEDS ORDERED: SODIUM CHLORIDE 0.9% 1000 ML 1,000 ML IV ONE (07:40)
--- NOTE | 2021-10-05 07:48 | Emergency Department Report ---
ED Abdominal Pain HPI - General Chief Complaint: Abdominal Pain Stated Complaint: UTI/NAUSEATED/VAGINAL BLEEDING/FATIGUE PUI?: No Time Seen by Provider: 10/05/21 07:13 Source: patient, old records reviewed Mode of arrival: Ambulatory Limitations: No Limitations - History of Present Illness Initial Comments: 31 year old female who denies any significant past medical history presents to the ER today with complaints of severe epiastric abdominal pain. Patient states that she has been having this pain for about 1 week. She described as a constant dull waxing and waning pain. She was seen here a few days ago for similar symptoms, she states that the only checked her urine and a urine . She states that she was diagnosed with a UTI. Reviewed patient visit from 10/01/2021, patient was diagnosed with a UTI and started on Bactrim and Protonix. Patient states that she has been taking the medication as prescribed but she still continues to have pain. She denies any UTI symptoms. She denies any abnormal vaginal discharge. She states that she still started vomiting this morning around 3 AM and has vomited 3 times since this morning. She reports generalized fatigue. She states that her stool has become loose but otherwise no constipation or diarrhea. She does have a history of GERD for which she reports that she has been compliant with taking her PPIs. She denies any alcohol abuse. She states that she has been taking ibuprofen for the pain with has not been helping. She denies NSAID abuse. She denies any abdominal surgeries in the past. She reports no chest pain or shortness of breath, fever or chills. Her last menstrual cycle was September 07, and she states that she started bleeding again yesterday. MD Complaint: abdominal pain -: week(s) - Related Data Previous Rx's Medication Instructions Recorded Last Taken Type Albuterol Mdi (or & Nicu Only) 2 puff IH QID PRN #1 inhalation 11/10/18 Unknown Rx [ProAir HFA Inhaler] Sulfamethoxazole/Trimethoprim 1 each PO BID #10 10/01/21 Unknown Rx [Bactrim DS TAB] Famotidine [Pepcid] 20 mg PO BID #30 tablet 10/05/21 Unknown Rx Hyoscyamine Subl [Levsin Sl 0.125 0.125 mg SL Q6HR PRN #20 tab 10/05/21 Unknown Rx TAB] Ondansetron [Zofran Odt] 4 mg PO Q8HR #15 tab.rapdis 10/05/21 Unknown Rx Pantoprazole [Protonix] 40 mg PO QDAY #30 tablet 10/05/21 Unknown Rx Allergies Allergy/AdvReac Type Severity Reaction Status Date / Time No Known Allergies Allergy Verified 10/01/21 10:40 ED Review of Systems ROS: Stated complaint: UTI/NAUSEATED/VAGINAL BLEEDING/FATIGUE Other details as noted in HPI Comment: All other systems reviewed and negative Constitutional: denies: chills, fever Eyes: denies: eye pain, eye discharge, vision change ENT: denies: ear pain, throat pain, dental pain, hearing loss, epistaxis, congestion Respiratory: denies: cough, shortness of breath, SOB with exertion, SOB at rest, wheezing Cardiovascular: denies: chest pain, palpitations, dyspnea on exertion, edema, syncope, paroxysmal nocturnal dyspnea Gastrointestinal: abdominal pain, nausea, vomiting. denies: diarrhea, constipation, hematemesis, melena, hematochezia Genitourinary: denies: urgency, dysuria, frequency, hematuria, discharge, abnormal menses, dyspareunia Musculoskeletal: denies: back pain, joint swelling, arthralgia Skin: denies: rash, lesions, change in color, change in hair/nails, pruritus Neurological: denies: headache, weakness, numbness, paresthesias, confusion, abnormal gait, vertigo ED Past Medical Hx - Past Medical History Previous Medical History?: No Hx Hypertension: No Hx Heart Attack/AMI: No Hx Congestive Heart Failure: No Hx Diabetes: No Hx Deep Vein Thrombosis: No Hx Renal Disease: No Hx Sickle Cell Disease: No Hx Seizures: No Hx Asthma: No Hx COPD: No Hx HIV: No - Surgical History Past Surgical History?: No - Social History Smoking Status: Never Smoker Substance Use Type: None (Denies illicit drug use) - Medications Home Medications: Home Medications Medication Instructions Recorded Confirmed Last Taken Type Albuterol Mdi (or & Nicu Only) 2 puff IH QID PRN #1 inhalation 11/10/18 Unknown Rx [ProAir HFA Inhaler] Sulfamethoxazole/Trimethoprim 1 each PO BID #10 10/01/21 Unknown Rx [Bactrim DS TAB] Famotidine [Pepcid] 20 mg PO BID #30 tablet 10/05/21 Unknown Rx Hyoscyamine Subl [Levsin Sl 0.125 0.125 mg SL Q6HR PRN #20 tab 10/05/21 Unknown Rx TAB] Ondansetron [Zofran Odt] 4 mg PO Q8HR #15 tab.rapdis 10/05/21 Unknown Rx Pantoprazole [Protonix] 40 mg PO QDAY #30 tablet 10/05/21 Unknown Rx ED Physical Exam - General Limitations: No Limitations General appearance: alert, anxious, in distress, obese - Head Head exam: Present: atraumatic, normocephalic, normal inspection - Eye Eye exam: Present: normal appearance, PERRL, EOMI Pupils: Present: normal accommodation - Neck Neck exam: Present: normal inspection, full ROM. Absent: meningismus - Respiratory Respiratory exam: Present: normal lung sounds bilaterally. Absent: respiratory distress, wheezes, rales, rhonchi - Cardiovascular Cardiovascular Exam: Present: regular rate, normal rhythm, normal heart sounds - GI/Abdominal GI/Abdominal exam: Present: soft, tenderness. Absent: distended, rebound - Neurological Exam Neurological exam: Present: alert, oriented X3, CN II-XII intact, normal gait - Psychiatric Psychiatric exam: Present: normal affect, normal mood - Skin Skin exam: Present: intact ED Course Vital Signs 10/05/21 06:28 Temperature 97.9 F Pulse Rate 97 H Respiratory 20 Rate Blood Pressure 138/88 O2 Sat by Pulse 100 Oximetry ED Medical Decision Making - Lab Data Result diagrams: 10/05/21 07:46 10/05/21 07:46 - Radiology Data Radiology results: report reviewed Patient: CIARAN MORALEZ MR#: [id number] : 1990 Acct:[id number] Age/Sex: 31 / F ADM Date: 10/05/21 Loc: ED Attending Dr: Ordering Physician: RASHMI WHITLEY Date of Service: 10/05/21 Procedure(s): CT abdomen pelvis w con Accession Number(s): [id number] cc: RASHMI WHITLEY CT ABDOMEN AND PELVIS WITH CONTRAST HISTORY: severe upper abd pain OMNI 300 100 ML COMPARISON: Prior CT on 09/05/2020 TECHNIQUE: Routine abdominal and pelvic CT exam performed following intravenous contrast administration.. All CT scans at this location are performed using CT dose reduction for ALARA by means of automated exposure control. FINDINGS: CT ABDOMEN: Lung Bases: No significant abnormality. Liver: No significant abnormality. Biliary: No significant abnormality. Spleen: No significant abnormality. Unenlarged. Pancreas: No significant abnormality. Adrenals: No significant abnormality. Kidneys: No significant abnormality. Lymphatics: No lymphadenopathy. Vasculature: No significant abnormality. Bowel/Peritoneum: No significant abnormality. No free air. No free fluid. CT PELVIC: : No significant abnormality. Lymphatics: No lymphadenopathy. Osseous Structures: No aggressive appearing osseous lesions. Additional Findings: None IMPRESSION: 1. No significant abnormality. Signer Name: Miguel Corea MD Signed: 10/05/2021 9:31 AM Workstation Name: [id number] Transcribed By: MIHAI Dictated By: Miguel Croea MD Electronically Authenticated By: Miguel Corea MD Signed Date/Time: 10/05/21930 DD/ 9 TD/TT: - Medical Decision Making 1211: Patient appears to be feeling better after IV meds and fluids. She has been observed resting comfortably and sleeping in the recliner ever since receiving the meds. She is easily arousable. She is currently not toxic or ill-appearing. She has not vomited since receiving medications. All labs reviewed --CBC and CMP unremarkable. hCG negative. CT abdomen pelvis shows no acute abnormalities. Urinalysis is questionable contaminated versus UTI, suspect more contamination but a urine culture is pending. Discussed all results with patient. We will have her continue the Bactrim she was prescribed on the seventh of this month. Given her pain is more epigastric in nature, she will be given medication for Pepcid and Protonix to cover possible gastritis/PUD, but will also give her a referral to PCP and GI for continued evaluation especially if her symptoms persist. At this time there is no indication for any additional emergent testing, emergent intervention, or admission. Patient expressed understanding of all instructions and agree with plan. Patient stable at time of discharge. Critical care attestation.: If time is entered above; I have spent that time in minutes in the direct care of this critically ill patient, excluding procedure time. ED Disposition Clinical Impression: Abdominal pain, UTI (urinary tract infection) Disposition: HOME / SELF CARE / HOMELESS Is pt being admited?: No Does the pt Need Aspirin: No Condition: Stable Instructions: Abdominal Pain, Adult, Urinary Tract Infection, Adult, Abdominal Pain (ED) Additional Instructions: I recommend that you take the Pepcid and the Protonix as prescribed. Take the Zofran as prescribed to help with nausea and vomiting. Take the Levsin to help with any abdominal cramping. Continue to take the Bactrim that was prescribed to you at your last visit for the UTI. Increase your water intake. If your symptoms persist you need to follow-up with a GI specialist, and one will be provided for you on your discharge instructions. You can also follow-up with your primary care doctor. Return to the ER if your symptoms worsens or changes in any way. Prescriptions: Hyoscyamine Subl [Levsin Sl 0.125 TAB] 0.125 mg SL Q6HR PRN #20 tab PRN Reason: abdominal cramp Famotidine [Pepcid] 20 mg PO BID #30 tablet Pantoprazole [Protonix] 40 mg PO QDAY #30 tablet Ondansetron [Zofran Odt] 4 mg PO Q8HR #15 tab.kalli Referrals: STEFAN HAMILTON MD [Staff Physician] - 3-5 Days [facility] [Provider Group] - 3-5 Days Forms: Work/School Release Form(ED) Time of Disposition: 11:49
[2021-10-05 08:09] LABS: Basophils % (Auto) 0.5 % (0.0-1.8); Eosinophils % (Auto) 0.6 % (0.0-4.3); Hematocrit 41.6 % (30.3-42.9); Hemoglobin 13.3 gm/dl (10.1-14.3); Lymphocytes # (Auto) 0.9 K/mm3 (1.2-5.4); Lymphocytes % (Auto) 15.1 % (13.4-35.0); Mean Corpuscular HGB Conc 32 % (30-34); Mean Corpuscular Volume 83 fl (79-97); Monocytes # (Auto) 0.6 K/mm3 (0.0-0.8); Monocytes % (Auto) 9.2 % (0.0-7.3); Platelet Count 449 K/mm3 (140-440); Red Blood Count 5.03 M/mm3 (3.65-5.03); Red Cell Distribution Width 14.9 % (13.2-15.2)
[2021-10-05 08:27] LABS: BUN/Creatinine Ratio 8; Blood Urea Nitrogen 7 mg/dL (7-17); Hemolysis Index 5
[2021-10-05 09:13] LABS: Alanine Aminotransferase 21 units/L (7-56); Albumin 4.8 g/dL (3.9-5); Bilirubin,Direct < 0.2 mg/dL (0-0.2)
--- NOTE | 2021-10-05 09:35 | Cat Scan Report ---
CT ABDOMEN AND PELVIS WITH CONTRAST HISTORY: severe upper abd pain OMNI 300 100 ML COMPARISON: Prior CT on 09/05/2020 TECHNIQUE: Routine abdominal and pelvic CT exam performed following intravenous contrast administrat ion.. All CT scans at this location are performed using CT dose reduction for ALARA by means of autom ated exposure control. FINDINGS: CT ABDOMEN: Lung Bases: No significant abnormality. Liver: No significant abnormality. Biliary: No significant abnormality. Spleen: No significant abnormality. Unenlarged. Pancreas: No significant abnormality. Adrenals: No significant abnormality. Kidneys: No significant abnormality. Lymphatics: No lymphadenopathy. Vasculature: No significant abnormality. Bowel/Peritoneum: No significant abnormality. No free air. No free fluid. CT PELVIC: : No significant abnormality. Lymphatics: No lymphadenopathy. Osseous Structures: No aggressive appearing osseous lesions. Additional Findings: None IMPRESSION: 1. No significant abnormality. Signer Name: Miguel Corea MD Signed: 10/05/2021 9:31 AM Workstation Name: [id number]
[2021-10-05 11:39] LABS: Bilirubin,Urine NEG (Negative); Blood,Urine LG (Negative); Color,Urine Red (Yellow); Urobilinogen,Urine < 2.0 mg/dL (<2.0)
[2021-10-05 11:41] LABS: RBC,Urine > 182.0 /HPF (0.0-6.0); WBC,Urine > 182.0 /HPF (0.0-6.0)
== END 2021-10-05 12:21 | disposition home or self-care (01) ==
LOC: ED 05:25
DX: N39.0 Urinary tract infection, site not specified (principal); R10.13 Epigastric pain; Z79.899 Other long term (current) drug therapy
CPT/HCPCS: 36415; 74177; 80048; 80076; 81001; 83690; 84703; 85025; 87086; 96361; 96374; 96375; 99284; J2270; J2405; J7030; Q9967; Q0162

== ENCOUNTER 2021-12-10 03:55 | Emergency (ER) | payer MEDICAID, OTHER | END 2021-12-10 04:30 | disposition left against medical advice (07) | LOC: ED 03:55 | DX: R07.81 Pleurodynia (principal); Z53.21 Procedure and treatment not carried out due to patient leaving prior to being seen by health care provider ==